=== PATIENT | female | born 1955 | race African-American/Black ===

== ENCOUNTER 2016-12-09 13:18 | Inpatient (IN) | payer BC, MEDICAID ==
[~2016-12-09] VITALS: Ht 167.6 cm; Wt 77.1 kg
[2016-12-09] MEDS ORDERED: Morphine Sulfate 4mg/ml Inj IVP ONE ×2 (13:45→15:45)
--- NOTE | 2016-12-09 14:09 | Diagnostic Imaging Report ---
Indication: COUGH Technique: One view of the chest Comparison: none Findings: There are large bilateral pleural effusions, left and right. There is bilateral interstitial edema. Heart is enlarged. Impression: Cardiomegaly. Bilateral interstitial edema and bilateral pleural effusions are consistent with congestive heart failure
[2016-12-09 14:11] LABS: BASOPHILS % (AUTO) 0.8 % (0.0-2.0); EOSINOPHILS % (AUTO) 0.1 % (0.0-3.0); LYMPHOCYTES % (AUTO) 6.5 % (20.0-45.0); MEAN CORPUSCULAR HEMOGLOBIN 27.5 PG (27.0-31.0); MEAN CORPUSCULAR HGB CONC 30.6 G/DL (32.0-36.0); MEAN CORPUSCULAR VOLUME 90 FL (80-99); MEAN PLATELET VOLUME 6.2 FL (6.5-10.1); MONOCYTES % (AUTO) 9.6 % (1.0-10.0); PLATELET COUNT 401 K/UL (150-450); RED BLOOD COUNT 4.76 M/UL (4.20-5.40); RED CELL DISTRIBUTION WIDTH 18.7 % (11.6-14.8); WHITE BLOOD COUNT 7.8 K/UL (4.8-10.8)
[2016-12-09 14:20] LABS: INR 1.1 (0.9-1.1)
--- NOTE | 2016-12-09 14:29 | Emergency Room Report ---
History of Present Illness General Chief Complaint: Abdominal Pain Source: Patient Present Illness HPI Patient presents emergency department today complaining of abdominal pain. Patient is a poor historian unable to provide much history. Patient only complains of abdominal discomfort last 3 days associate nausea but no vomiting. Symptoms noted to be severe. Patient denies any fever chest pain shortness breath.No other modifying factors. No other associated signs and symptoms. No other complaints were noted. Allergies: Coded Allergies: No Known Allergies (Unverified , 12/09/16) Patient History Past Medical History: DM, HTN Past Surgical History: none Pertinent Family History: none Social History: Denies: alcohol use, drug use, smoking Reviewed Nursing Documentation: PMH: Agreed, PSxH: Agreed Nursing Documentation-PMH Past Medical History: No History, Except For Hx Hypertension: Yes Hx Diabetes: Yes Review of Systems All Other Systems: negative except mentioned in HPI Physical Exam Vital Signs Date Time Temp Pulse Resp B/P Pulse Ox O2 Delivery O2 Flow Rate FiO2 12/09/16 13:21 98.6 100 18 117/79 99 Room Air Sp02 EP Interpretation: reviewed, normal General Appearance: alert, moderate distress Head: normocephalic, atraumatic Eyes: bilateral eye normal inspection ENT: normal ENT inspection, hearing grossly normal, normal voice Neck: normal inspection, full range of motion, supple, no bony tend Respiratory: normal inspection, lungs clear, normal breath sounds, no respiratory distress, no retraction, no wheezing Cardiovascular #1: regular rate, rhythm, no edema Gastrointestinal: normal inspection, normal bowel sounds, soft, no guarding, no hernia, tenderness - Diffusely, mass Genitourinary: no CVA tenderness Musculoskeletal: normal inspection, back normal, normal range of motion Neurologic: responsive, other - sleepy Psychiatric: normal inspection, judgement/insight normal, mood/affect normal Skin: normal inspection, normal color, no rash Medical Decision Making Diagnostic Impression: Primary Impression: Abdominal pain ER Course Patient presents emergency department today complaining of severe abdominal pain. Differential considerations include gastritis, bowel traction, hernia. There is a palpable mass. Given the severity of the patient's presentation I felt this is a highly complex patient. This patient required extensive workup. I will sign this case out to Dr. Arana for final disposition. Last Vital Signs Date Time Temp Pulse Resp B/P Pulse Ox O2 Delivery O2 Flow Rate FiO2 12/09/16 13:21 98.6 100 18 117/79 99 Room Air Referrals: NOT CHOSEN IPA/,REFERRING (PCP) PEDRO WHALEY M.D. Dec 09, 2016 14:29
[2016-12-09 14:30] LABS: ALANINE AMINOTRANSFERASE 22 U/L (3-33); ALBUMIN/GLOBULIN RATIO 0.7 (1.0-2.7); ANION GAP 22 (5-15); ASPARTATE AMINO TRANSFERASE 50 U/L (5-40); CALCIUM 8.8 mg/dL (8.6-10.2); CARBON DIOXIDE 26 mEQ/L (20-30); CHLORIDE 86 mEQ/L (98-107); CREATININE 0.6 mg/dL (0.5-0.9); GLOMERULAR FILTRATION RATE > 60 mL/min (>60); HEMOLYSIS 1; LIPASE 9 U/L (< 60); POTASSIUM 3.9 mEQ/L (3.4-4.9); SODIUM 134 mEQ/L (135-145); TROPONIN I < 0.30 ng/mL (<=0.30)
[2016-12-09 15:02] VITALS: BP 135/59
[2016-12-09 15:17] VITALS: BP 136/67
[2016-12-09] MEDS ORDERED: UNOBMED (16:06)
[2016-12-09 17:12] LABS: APPEARANCE,URINE CLEAR; KETONES,URINE 4+ (NEGATIVE); LEUKOCYTE ESTERASE ,URINE NEGATIVE (NEGATIVE); NITRITE,URINE NEGATIVE (NEGATIVE); PH,URINE 5 (4.5-8.0); PROTEIN,URINE 1+ (NEGATIVE); UROBILINOGEN,URINE NORMAL MG/DL (0.0-1.0)
[2016-12-09] MEDS ORDERED: Nitroglycerin Subl 0.4mg tab (Bottle Of 25) SL PRN (17:15)
[2016-12-09 17:26] LABS: RBC,URINE 0-2 /HPF (0 - 2); WBC,URINE 0-2 /HPF (0 - 2)
[2016-12-09 17:27] VITALS: BP 129/75
[2016-12-09 17:27] LABS: SQUAMOUS EPITHELIAL CELL,UR OCCASIONAL /LPF (NONE/OCC)
--- NOTE | 2016-12-09 17:49 | Emergency Room Report ---
History of Present Illness General Chief Complaint: Abdominal Pain Source: Patient Present Illness Allergies: Coded Allergies: No Known Allergies (Unverified , 12/09/16) Nursing Documentation-[facility] Past Medical History: No History, Except For Hx Hypertension: Yes Hx Diabetes: Yes Physical Exam Vital Signs Date Time Temp Pulse Resp B/P Pulse Ox O2 Delivery O2 Flow Rate FiO2 12/09/16 13:21 98.6 100 18 117/79 99 Room Air Medical Decision Making Diagnostic Impression: Primary Impression: Abdominal pain Qualified Codes: R10.84 - Generalized abdominal pain Additional Impression: Metastatic disease ER Course Hospital Course 61-year-old female presents ED complaining of abdominal distention and vomiting Clinical course Patient initially seen and evaluated by Dr. Busby; please see his note for full history and physical CT abdomen and pelvis - extensive metastasis and abdomen with ascites. No definitive bowel obstruction I discussed findings with patient. She is aware of having "cancer" in her abdomen but does not know where she is being treated. I suspect patient has lost to followup care Findings are significant, likely inoperable Case discussed with Dr. Schulte and he agreed to accept the patient to his service for further care and support I feel this is a highly complex case requiring extensive working including EKG/ Rhythm strip, Xray/CT/US, Blood/urine lab work, repeat exams while in ED, and administration of strong opiates/narcotics for pain control, admission to hospital or close patient follow up. Diagnosis -abd pain, metastatic disease Patient admitted to floor in serious condition Labs Test 12/09/16 13:50 12/09/16 16:42 White Blood Count 7.8 K/UL (4.8-10.8) Red Blood Count 4.76 M/UL (4.20-5.40) Hemoglobin 13.1 G/DL (12.0-16.0) Hematocrit 42.7 % (37.0-47.0) Mean Corpuscular Volume 90 FL (80-99) Mean Corpuscular Hemoglobin 27.5 PG (27.0-31.0) Mean Corpuscular Hemoglobin Concent 30.6 G/DL (32.0-36.0) Red Cell Distribution Width 18.7 % (11.6-14.8) Platelet Count 401 K/UL (150-450) Mean Platelet Volume 6.2 FL (6.5-10.1) Neutrophils (%) (Auto) 83.0 % (45.0-75.0) Lymphocytes (%) (Auto) 6.5 % (20.0-45.0) Monocytes (%) (Auto) 9.6 % (1.0-10.0) Eosinophils (%) (Auto) 0.1 % (0.0-3.0) Basophils (%) (Auto) 0.8 % (0.0-2.0) Prothrombin Time 11.0 SEC (9.30-11.50) Prothromb Time International Ratio 1.1 (0.9-1.1) Activated Partial Thromboplast Time 31 SEC (23-33) Sodium Level 134 mEQ/L (135-145) Potassium Level 3.9 mEQ/L (3.4-4.9) Chloride Level 86 mEQ/L (98-107) Carbon Dioxide Level 26 mEQ/L (20-30) Anion Gap 22 (5-15) Blood Urea Nitrogen 8 mg/dL (7-23) Creatinine 0.6 mg/dL (0.5-0.9) Estimat Glomerular Filtration Rate > 60 mL/min (>60) Glucose Level 81 mg/dL (74-106) Calcium Level 8.8 mg/dL (8.6-10.2) Total Bilirubin 0.4 mg/dL (0.0-1.2) Aspartate Amino Transf (AST/SGOT) 50 U/L (5-40) Alanine Aminotransferase (ALT/SGPT) 22 U/L (3-33) Alkaline Phosphatase 307 U/L (35-104) Troponin I < 0.30 ng/mL (<=0.30) Total Protein 7.0 g/dL (6.6-8.7) Albumin 2.9 g/dL (3.5-5.2) Globulin 4.1 g/dL Albumin/Globulin Ratio 0.7 (1.0-2.7) Lipase 9 U/L (< 60) Urine Color Yellow Urine Appearance Clear Urine pH 5 (4.5-8.0) Urine Specific [place] 1.015 (1.005-1.035) Urine Protein 1+ (NEGATIVE) Urine Glucose (UA) Negative (NEGATIVE) Urine Ketones 4+ (NEGATIVE) Urine Occult Blood 1+ (NEGATIVE) Urine Nitrite Negative (NEGATIVE) Urine Bilirubin Negative (NEGATIVE) Urine Urobilinogen Normal MG/DL (0.0-1.0) Urine Leukocyte Esterase Negative (NEGATIVE) Urine RBC 0-2 /HPF (0 - 2) Urine WBC 0-2 /HPF (0 - 2) Urine Squamous Epithelial Cells Occasional /LPF Urine Bacteria None /HPF (NONE) CT/MRI/US Diagnostic Results CT/MRI/US Diagnostic Results : Imaging Test Ordered: CT A/P Impression ascites, extensive metastasis in abdomen. no definitive SBO Last Vital Signs Date Time Temp Pulse Resp B/P Pulse Ox O2 Delivery O2 Flow Rate FiO2 12/09/16 17:30 98.5 109 21 129/75 100 Room Air Status: improved Disposition: ADMITTED INPATIENT Condition: Serious Referrals: NOT CHOSEN IPA/,REFERRING (PCP) ARCELIA CARLISLE M.D. Dec 09, 2016 17:49
[2016-12-09] MEDS ORDERED: Miralax 17gm pkt ORAL PRN (18:00)
[2016-12-09] MEDS ORDERED: Mylanta II UD 30ml ORAL PRN (18:00)
[2016-12-09 20:00] VITALS: BP 86/62
[2016-12-09] MEDS: NovoLOG Insulin Flexpen SUBQ SCH (21:00)
[2016-12-09] MEDS: Heparin 5000 units/ml inj SUBQ SCH (21:14)
[2016-12-09] MEDS: Morphine Sulfate 2mg/ml Inj IVP PRN (21:57)
[2016-12-10 00:45] VITALS: BP 135/79
[2016-12-10] MEDS: Morphine Sulfate 2mg/ml Inj IVP PRN ×3 (03:22→21:19)
[2016-12-10] MEDS: Ketorolac 30mg Inj IV PRN (03:55)
[2016-12-10 04:40] LABS: INR 1.1 (0.9-1.1); PROTHROMBIN TIME 10.9 SEC (9.30-11.50)
[2016-12-10 04:44] LABS: BASOPHILS % (AUTO) 1.6 % (0.0-2.0); EOSINOPHILS % (AUTO) 0.2 % (0.0-3.0); LYMPHOCYTES % (AUTO) 10.4 % (20.0-45.0); MEAN CORPUSCULAR HEMOGLOBIN 27.6 PG (27.0-31.0); MEAN CORPUSCULAR HGB CONC 30.5 G/DL (32.0-36.0); MEAN CORPUSCULAR VOLUME 91 FL (80-99); MEAN PLATELET VOLUME 6.6 FL (6.5-10.1); MONOCYTES % (AUTO) 11.5 % (1.0-10.0); NEUTROPHILS % (AUTO) 76.4 % (45.0-75.0); PLATELET COUNT 398 K/UL (150-450); RED BLOOD COUNT 4.65 M/UL (4.20-5.40); RED CELL DISTRIBUTION WIDTH 19.1 % (11.6-14.8); WHITE BLOOD COUNT 7.1 K/UL (4.8-10.8)
[2016-12-10 05:31] LABS: ALANINE AMINOTRANSFERASE 21 U/L (3-33); ALBUMIN/GLOBULIN RATIO 0.6 (1.0-2.7); AMYLASE 15 U/L (10-110); ANION GAP 21 (5-15); ASPARTATE AMINO TRANSFERASE 44 U/L (5-40); CALCIUM 8.9 mg/dL (8.6-10.2); CARBON DIOXIDE 27 mEQ/L (20-30); CHLORIDE 88 mEQ/L (98-107); CREATININE 0.6 mg/dL (0.5-0.9); GLOMERULAR FILTRATION RATE > 60 mL/min (>60); HEMOLYSIS 0; LIPASE 8 U/L (< 60); POTASSIUM 3.7 mEQ/L (3.4-4.9); SODIUM 136 mEQ/L (135-145); TOTAL PROTEIN 6.7 g/dL (6.6-8.7)
[2016-12-10] MEDS: NovoLOG Insulin Flexpen SUBQ SCH ×4 (06:20→22:10)
[2016-12-10 06:49] LABS: HEMOGLOBIN A1C 5.3 % (< 6.0)
[2016-12-10 08:00] VITALS: BP 129/76
[2016-12-10] MEDS: Heparin 5000 units/ml inj SUBQ SCH ×2 (09:10→22:15)
[2016-12-10 12:00] VITALS: BP 129/79
--- NOTE | 2016-12-10 13:17 | GI Initial Consult Note ---
History of Present Illness General Date patient seen: Dec 10, 2016 Time patient seen: 10:00 Reason for Hospitalization: Abdominal Pain Referring physician: SERENITY STATON Reason for Consultation: ABDOMINAL PAIN x 3 days Present Illness HPI Patient presents emergency department today complaining of abdominal pain. Patient is a poor historian unable to provide much history. Patient only complains of abdominal discomfort last 3 days associate nausea but no vomiting. Symptoms noted to be severe. Patient denies any fever chest pain shortness breath.No other modifying factors. No other associated signs and symptoms. No other complaints were noted. GI CONSULT: HPI as noted above, limited. Pt seen on floor fatigued, awakes upon touch. Unable to obtain full ROS. No active s/sx of abdominal pain or N/ V. APCT shows ascites, extensive metastasis in abdomen. No definitive SBO. Unknown history of any endoscopic procedures. Abdominal U/S pending. Patient presents today with abdominal pain, elevated alkaline phosphatase. Unremarkable lipase level. CT/MRI/US Diagnostic Results CT/MRI/US Diagnostic Results : Imaging Test Ordered: CT A/P Impression ascites, extensive metastasis in abdomen. no definitive SBO Home Meds Reported Medications Unable to Obtain Medications (UNABLE TO OBTAIN MEDS) 1 Ea Ea 12/09/16 Allergies: Coded Allergies: No Known Allergies (Unverified , 12/09/16) Patient History Limited by: medical condition History Provided By: Medical Record PM Narrative Past Medical History: DM, HTN Past Surgical History: none Pertinent Family History: none Social History: Denies: alcohol use, drug use, smoking Reviewed Nursing Documentation: PMH: Agreed, PSxH: Agreed Nursing Documentation-PMH Past Medical History: No History, Except For Hx Hypertension: Yes Hx Diabetes: Yes Review of Systems All Other Systems: limited Physical Exam Vital Signs Date Time Temp Pulse Resp B/P Pulse Ox O2 Delivery O2 Flow Rate FiO2 12/09/16 13:21 98.6 100 18 117/79 99 Room Air Sp02 EP Interpretation: reviewed Labs Laboratory Tests Test 12/09/16 13:50 12/09/16 16:42 12/10/16 03:45 White Blood Count 7.8 K/UL (4.8-10.8) 7.1 K/UL (4.8-10.8) Red Blood Count 4.76 M/UL (4.20-5.40) 4.65 M/UL (4.20-5.40) Hemoglobin 13.1 G/DL (12.0-16.0) 12.8 G/DL (12.0-16.0) Hematocrit 42.7 % (37.0-47.0) 42.1 % (37.0-47.0) Mean Corpuscular Volume 90 FL (80-99) 91 FL (80-99) Mean Corpuscular Hemoglobin 27.5 PG (27.0-31.0) 27.6 PG (27.0-31.0) Mean Corpuscular Hemoglobin Concent 30.6 G/DL (32.0-36.0) L 30.5 G/DL (32.0-36.0) L Red Cell Distribution Width 18.7 % (11.6-14.8) H 19.1 % (11.6-14.8) H Platelet Count 401 K/UL (150-450) 398 K/UL (150-450) Mean Platelet Volume 6.2 FL (6.5-10.1) L 6.6 FL (6.5-10.1) Neutrophils (%) (Auto) 83.0 % (45.0-75.0) H 76.4 % (45.0-75.0) H Lymphocytes (%) (Auto) 6.5 % (20.0-45.0) L 10.4 % (20.0-45.0) L Monocytes (%) (Auto) 9.6 % (1.0-10.0) 11.5 % (1.0-10.0) H Eosinophils (%) (Auto) 0.1 % (0.0-3.0) 0.2 % (0.0-3.0) Basophils (%) (Auto) 0.8 % (0.0-2.0) 1.6 % (0.0-2.0) Prothrombin Time 11.0 SEC (9.30-11.50) 10.9 SEC (9.30-11.50) Prothromb Time International Ratio 1.1 (0.9-1.1) 1.1 (0.9-1.1) Activated Partial Thromboplast Time 31 SEC (23-33) 32 SEC (23-33) Sodium Level 134 mEQ/L (135-145) L 136 mEQ/L (135-145) Potassium Level 3.9 mEQ/L (3.4-4.9) 3.7 mEQ/L (3.4-4.9) Chloride Level 86 mEQ/L (98-107) L 88 mEQ/L (98-107) L Carbon Dioxide Level 26 mEQ/L (20-30) 27 mEQ/L (20-30) Anion Gap 22 (5-15) H 21 (5-15) H Blood Urea Nitrogen 8 mg/dL (7-23) 7 mg/dL (7-23) Creatinine 0.6 mg/dL (0.5-0.9) 0.6 mg/dL (0.5-0.9) Estimat Glomerular Filtration Rate > 60 mL/min (>60) > 60 mL/min (>60) Glucose Level 81 mg/dL (74-106) 78 mg/dL (74-106) Calcium Level 8.8 mg/dL (8.6-10.2) 8.9 mg/dL (8.6-10.2) Total Bilirubin 0.4 mg/dL (0.0-1.2) 0.4 mg/dL (0.0-1.2) Aspartate Amino Transf (AST/SGOT) 50 U/L (5-40) H 44 U/L (5-40) H Alanine Aminotransferase (ALT/SGPT) 22 U/L (3-33) 21 U/L (3-33) Alkaline Phosphatase 307 U/L (35-104) H 328 U/L (35-104) H Troponin I < 0.30 ng/mL (<=0.30) Total Protein 7.0 g/dL (6.6-8.7) 6.7 g/dL (6.6-8.7) Albumin 2.9 g/dL (3.5-5.2) L 2.7 g/dL (3.5-5.2) L Globulin 4.1 g/dL 4.0 g/dL Albumin/Globulin Ratio 0.7 (1.0-2.7) L 0.6 (1.0-2.7) L Lipase 9 U/L (< 60) 8 U/L (< 60) Urine Color Yellow Urine Appearance Clear Urine pH 5 (4.5-8.0) Urine Specific [place] 1.015 (1.005-1.035) Urine Protein 1+ (NEGATIVE) H Urine Glucose (UA) Negative (NEGATIVE) Urine Ketones 4+ (NEGATIVE) H Urine Occult Blood 1+ (NEGATIVE) H Urine Nitrite Negative (NEGATIVE) Urine Bilirubin Negative (NEGATIVE) Urine Urobilinogen Normal MG/DL (0.0-1.0) Urine Leukocyte Esterase Negative (NEGATIVE) Urine RBC 0-2 /HPF (0 - 2) Urine WBC 0-2 /HPF (0 - 2) Urine Squamous Epithelial Cells Occasional /LPF Urine Bacteria None /HPF (NONE) Hemoglobin A1c 5.3 % (< 6.0) Amylase Level 15 U/L (10-110) Thyroid Stimulating Hormone (TSH) 0.830 uIU/mL (0.300-4.500) General Appearance: no apparent distress, other - fatigue Head: normocephalic EENT: normal ENT inspection Neck: supple Respiratory: no respiratory distress Cardiovascular: normal rate Gastrointestinal: non tender, soft, distended, ascites Rectal: deferred Current Medications Current Medications Medications (Trade) Dose Ordered Sig/Fabian Route PRN Reason Start Time Stop Time Status Last Admin Dose Admin Acetaminophen (Tylenol) 650 mg Q4H PRN ORAL T>100.5 12/09/16 17:15 01/08/17 17:14 Al Hydroxide/Mg Hydroxide (Mylanta II) 30 ml Q6H PRN ORAL dyspepsia 12/09/16 18:00 01/08/17 17:59 Dextrose (Dextrose 50%) STAT PRN IV Hypoglycemia 12/09/16 17:15 01/08/17 17:14 Diphenhydramine HCl (Benadryl) 25 mg Q6H PRN ORAL Itching/Pruritis 12/09/16 18:00 01/08/17 17:59 Heparin Sodium (Porcine) (Heparin 5000 units/ml) 5,000 units EVERY 12 HOURS SUBQ 12/09/16 21:00 01/08/17 20:59 12/10/16 09:10 Insulin Aspart (NovoLOG) BEFORE MEALS AND HS SUBQ 12/09/16 21:00 01/08/17 20:59 Ketorolac Tromethamine 30 mg 30 mg Q6H PRN IV Moderate Pain (Pain Scale 4-6) 12/09/16 17:15 12/14/16 17:14 12/10/16 03:55 Morphine Sulfate (Morphine Sulfate) 2 mg Q4H PRN IVP Severe Pain (Pain Scale 7-10) 12/09/16 17:15 12/16/16 17:14 12/10/16 11:19 Nitroglycerin (Ntg) 0.4 mg Q5M X 3 DOSES PRN SL Prn Chest Pain 12/09/16 17:15 01/08/17 17:14 Ondansetron HCl (Zofran) 4 mg Q6H PRN IVP Nausea & Vomiting 12/09/16 18:00 01/08/17 17:59 Polyethylene Glycol (Miralax) 17 gm HSPRN PRN ORAL Constipation 12/09/16 18:00 01/08/17 17:59 Sodium Chloride (Sodium Chloride 1000ml bag) 1,000 ml @ 50 mls/hr Q20H IV 12/09/16 18:00 01/08/17 17:59 12/09/16 18:06 Temazepam (Restoril) 15 mg HSPRN PRN ORAL Insomnia 12/09/16 21:00 12/16/16 20:59 12/10/16 00:50 GI: Plan Problems: (1) Elevated alkaline phosphatase level (2) Ascites (3) Metastatic disease (4) Abdominal pain Plan APCT >> ascites, extensive metastasis in abdomen. no definitive SBO symptomatic treatment fu abdominal U/S ordered paracentesis >> unable to obtain consent, AMS ordered aldactone + lasix ordered tumor markers, ammonia pain mgmt bowel regime ppi fu labs recommend oncology consult Discussed with Dr. Karimi. Thank you for referring this patient, we will follow. Love Witt N.P. Dec 10, 2016 13:17
--- NOTE | 2016-12-10 15:38 | History and Physical ---
History of Present Illness General Date patient seen: Dec 10, 2016 Reason for Hospitalization: Abdominal Pain Present Illness HPI 61 year old with hx of DM, and metastatic Cancer, presented to emergency department of [facility] [place] complaining of abdominal pain associate nausea but no vomiting. Pt is admitted for further treatment. Allergies: Coded Allergies: No Known Allergies (Unverified , 12/09/16) Medication History Miscellaneous Medications Unable to Obtain Medications (Unable To Obtain Meds), (Reported) Patient History Healthcare decision maker Resuscitation status Full Code Advanced Directive on File Past Medical/Surgical History Past Medical/Surgical History: (1) Metastatic disease (2) Abdominal pain (3) Ascites Review of Systems Gastrointestinal: Reports: abdominal pain All Other Systems: negative except mentioned in HPI Physical Exam General Appearance: cachetic Lines, tubes and drains: peripheral, central line HEENT: normocephalic Neck: non-tender, normal alignment Respiratory/Chest: chest wall non-tender, lungs clear Breasts: no masses Cardiovascular/Chest: normal peripheral pulses Abdomen: distended Last 24 Hour Vital Signs Date Time Temp Pulse Resp B/P Pulse Ox O2 Delivery O2 Flow Rate FiO2 12/10/16 12:00 97.9 108 18 129/79 96 Room Air 12/10/16 08:00 98.0 107 18 129/76 89 Room Air 12/10/16 00:45 97.7 120 19 135/79 91 Room Air 12/09/16 22:27 98.2 12/09/16 20:00 98.2 100 17 86/62 86 Room Air 12/09/16 17:30 98.5 109 21 129/75 100 Room Air 12/09/16 17:27 98.5 109 21 129/75 100 Room Air Intake and Output 12/09/16 12/10/16 18:59 06:59 Intake Total 150 ml Output Total 200 ml Balance -200 ml 150 ml Intake IV Total 150 ml Output Urine Total 200 ml # Voids 1 4 Laboratory Tests Test 12/09/16 16:42 12/10/16 03:45 Urine Color Yellow Urine Appearance Clear Urine pH 5 (4.5-8.0) Urine Specific [place] 1.015 (1.005-1.035) Urine Protein 1+ (NEGATIVE) H Urine Glucose (UA) Negative (NEGATIVE) Urine Ketones 4+ (NEGATIVE) H Urine Occult Blood 1+ (NEGATIVE) H Urine Nitrite Negative (NEGATIVE) Urine Bilirubin Negative (NEGATIVE) Urine Urobilinogen Normal MG/DL (0.0-1.0) Urine Leukocyte Esterase Negative (NEGATIVE) Urine RBC 0-2 /HPF (0 - 2) Urine WBC 0-2 /HPF (0 - 2) Urine Squamous Epithelial Cells Occasional /LPF Urine Bacteria None /HPF (NONE) White Blood Count 7.1 K/UL (4.8-10.8) Red Blood Count 4.65 M/UL (4.20-5.40) Hemoglobin 12.8 G/DL (12.0-16.0) Hematocrit 42.1 % (37.0-47.0) Mean Corpuscular Volume 91 FL (80-99) Mean Corpuscular Hemoglobin 27.6 PG (27.0-31.0) Mean Corpuscular Hemoglobin Concent 30.5 G/DL (32.0-36.0) L Red Cell Distribution Width 19.1 % (11.6-14.8) H Platelet Count 398 K/UL (150-450) Mean Platelet Volume 6.6 FL (6.5-10.1) Neutrophils (%) (Auto) 76.4 % (45.0-75.0) H Lymphocytes (%) (Auto) 10.4 % (20.0-45.0) L Monocytes (%) (Auto) 11.5 % (1.0-10.0) H Eosinophils (%) (Auto) 0.2 % (0.0-3.0) Basophils (%) (Auto) 1.6 % (0.0-2.0) Prothrombin Time 10.9 SEC (9.30-11.50) Prothromb Time International Ratio 1.1 (0.9-1.1) Activated Partial Thromboplast Time 32 SEC (23-33) Sodium Level 136 mEQ/L (135-145) Potassium Level 3.7 mEQ/L (3.4-4.9) Chloride Level 88 mEQ/L (98-107) L Carbon Dioxide Level 27 mEQ/L (20-30) Anion Gap 21 (5-15) H Blood Urea Nitrogen 7 mg/dL (7-23) Creatinine 0.6 mg/dL (0.5-0.9) Estimat Glomerular Filtration Rate > 60 mL/min (>60) Glucose Level 78 mg/dL (74-106) Hemoglobin A1c 5.3 % (< 6.0) Calcium Level 8.9 mg/dL (8.6-10.2) Total Bilirubin 0.4 mg/dL (0.0-1.2) Aspartate Amino Transf (AST/SGOT) 44 U/L (5-40) H Alanine Aminotransferase (ALT/SGPT) 21 U/L (3-33) Alkaline Phosphatase 328 U/L (35-104) H Total Protein 6.7 g/dL (6.6-8.7) Albumin 2.7 g/dL (3.5-5.2) L Globulin 4.0 g/dL Albumin/Globulin Ratio 0.6 (1.0-2.7) L Amylase Level 15 U/L (10-110) Lipase 8 U/L (< 60) Thyroid Stimulating Hormone (TSH) 0.830 uIU/mL (0.300-4.500) Height (Feet): 5 Height (Inches): 6.00 Weight (Pounds): 170 Medications Current Medications Medications (Trade) Dose Ordered Sig/Fabian Route PRN Reason Start Time Stop Time Status Last Admin Dose Admin Acetaminophen (Tylenol) 650 mg Q4H PRN ORAL T>100.5 12/09/16 17:15 01/08/17 17:14 Al Hydroxide/Mg Hydroxide (Mylanta II) 30 ml Q6H PRN ORAL dyspepsia 12/09/16 18:00 01/08/17 17:59 Dextrose (Dextrose 50%) STAT PRN IV Hypoglycemia 12/09/16 17:15 01/08/17 17:14 Diphenhydramine HCl (Benadryl) 25 mg Q6H PRN ORAL Itching/Pruritis 12/09/16 18:00 01/08/17 17:59 Docusate Sodium (Colace) 100 mg THREE TIMES A DAY ORAL 12/10/16 18:00 01/09/17 17:59 Furosemide (Lasix) 40 mg DAILY IV 12/11/16 09:00 01/10/17 08:59 Heparin Sodium (Porcine) (Heparin 5000 units/ml) 5,000 units EVERY 12 HOURS SUBQ 12/09/16 21:00 01/08/17 20:59 12/10/16 09:10 Insulin Aspart (NovoLOG) BEFORE MEALS AND HS SUBQ 12/09/16 21:00 01/08/17 20:59 Ketorolac Tromethamine 30 mg 30 mg Q6H PRN IV Moderate Pain (Pain Scale 4-6) 12/09/16 17:15 12/14/16 17:14 12/10/16 03:55 Morphine Sulfate (Morphine Sulfate) 2 mg Q4H PRN IVP Severe Pain (Pain Scale 7-10) 12/09/16 17:15 12/16/16 17:14 12/10/16 11:19 Nitroglycerin (Ntg) 0.4 mg Q5M X 3 DOSES PRN SL Prn Chest Pain 12/09/16 17:15 01/08/17 17:14 Ondansetron HCl (Zofran) 4 mg Q6H PRN IVP Nausea & Vomiting 12/09/16 18:00 01/08/17 17:59 Pantoprazole (Protonix) 40 mg DAILY IVP 12/11/16 09:00 01/10/17 08:59 Polyethylene Glycol (Miralax) 17 gm HSPRN PRN ORAL Constipation 12/09/16 18:00 01/08/17 17:59 Sodium Chloride (Sodium Chloride 1000ml bag) 1,000 ml @ 50 mls/hr Q20H IV 12/09/16 18:00 01/08/17 17:59 12/10/16 13:41 Spironolactone (Aldactone) 25 mg EVERY 12 HOURS ORAL 12/10/16 21:00 01/09/17 20:59 Temazepam (Restoril) 15 mg HSPRN PRN ORAL Insomnia 12/09/16 21:00 12/16/16 20:59 12/10/16 00:50 Assessment/Plan Problem List: (1) Metastatic disease ICD Codes: C80.1 - Malignant (primary) neoplasm, unspecified SNOMED: 142980300 (2) Abdominal pain ICD Codes: R10.9 - Unspecified abdominal pain SNOMED: 92816876 Qualifiers: Qualified Codes: R10.84 - Generalized abdominal pain (3) Ascites ICD Codes: R18.8 - Other ascites SNOMED: 559027008 (4) Elevated alkaline phosphatase level ICD Codes: R74.8 - Abnormal levels of other serum enzymes SNOMED: 302606966 Assessment/Plan symptomatic treatment NPO IV fluids pain management social service consult might need placement appropriate for hospice and end of life care. SERENITY LAU Dec 10, 2016 15:38
--- NOTE | 2016-12-10 15:53 | Diagnostic Imaging Report ---
Indication: Abdominal pain and nausea Technique: Conklin-scale and duplex images of the upper abdomen were obtained Comparison: 12/09/2016 CT abdomen pelvis Findings: . Liver demonstrates heterogeneous patchy abnormal echogenicity diffusely. It demonstrates multiple cysts. There are also multiple masses within the liver. The largest of these is a hyperechoic mass which measures 4.9 x 5.2 cm, probably some corresponding to the dominant mass described on recent CT scan. The gallbladder contains a large gallstone. It is otherwise more normal in appearance than would be expected based on prior CT.. Density of the gallbladder contents on the prior CT may therefore of limited milk of calcium bile or biliary contrast excretion. Portal vein and hepatic veins are patent., Bile duct measures 5 mm diameter. Is a small amount of ascites fluid present.. Pancreas is unremarkable. Spleen is unremarkable. Left kidney measures 11.1 cm in length. Right kidney measures 10.9 cm length. Both kidneys demonstrate normal echogenicity. There is no hydronephrosis. There is a small peripheral left renal cyst. There is a 16 mm right renal cyst, also described on recent CT . Abdominal aorta is partially obscured by bowel gas, visualized portions are non-aneurysmal. There is a large left pleural effusion Impression: Findings patchy abnormal hepatic echogenicity diffusely, likely reflecting chronic liver disease Multiple hepatic masses, also described on recent CT.. Suspect disseminated neoplasm Cholelithiasis. No definite gallbladder mass. Findings on recent CT in the gallbladder may just have reflect dense bile within the gallbladder lumen Mild intrahepatic biliary ductal dilatation, also described on recent CT Ascites Large left pleural effusion Incidental findings of bilateral renal cysts Note limited visualization of the distal abdominal aorta
[2016-12-10 16:00] VITALS: BP 136/79
[2016-12-10] MEDS: Docusate 100mg cap ORAL SCH (18:34)
[2016-12-10 20:00] VITALS: BP 145/70
[2016-12-10] MEDS: Spironolactone 25mg tab ORAL SCH (22:13)
[2016-12-11] VITALS: BP 126/78
[2016-12-11] MEDS: Ketorolac 30mg Inj IV PRN (00:44)
[2016-12-11 04:00] VITALS: BP 132/83
[2016-12-11] MEDS: NovoLOG Insulin Flexpen SUBQ SCH ×4 (06:10→21:28)
[2016-12-11 07:11] LABS: INR 1.1 (0.9-1.1); PROTHROMBIN TIME 10.7 SEC (9.30-11.50)
[2016-12-11 07:15] LABS: BASOPHILS % (AUTO) 1.8 % (0.0-2.0); EOSINOPHILS % (AUTO) 0.6 % (0.0-3.0); LYMPHOCYTES % (AUTO) 11.6 % (20.0-45.0); MEAN CORPUSCULAR HEMOGLOBIN 27.3 PG (27.0-31.0); MEAN CORPUSCULAR HGB CONC 30.2 G/DL (32.0-36.0); MEAN CORPUSCULAR VOLUME 91 FL (80-99); MEAN PLATELET VOLUME 6.6 FL (6.5-10.1); MONOCYTES % (AUTO) 12.9 % (1.0-10.0); NEUTROPHILS % (AUTO) 73.1 % (45.0-75.0); PLATELET COUNT 417 K/UL (150-450); RED BLOOD COUNT 4.55 M/UL (4.20-5.40); WHITE BLOOD COUNT 6.2 K/UL (4.8-10.8)
[2016-12-11 08:00] VITALS: BP 123/75
[2016-12-11 08:09] LABS: ALANINE AMINOTRANSFERASE 20 U/L (3-33); ALBUMIN/GLOBULIN RATIO 0.6 (1.0-2.7); ANION GAP 17 (5-15); ASPARTATE AMINO TRANSFERASE 41 U/L (5-40); CALCIUM 8.8 mg/dL (8.6-10.2); CARBON DIOXIDE 30 mEQ/L (20-30); CHLORIDE 90 mEQ/L (98-107); CREATININE 0.7 mg/dL (0.5-0.9); GLOMERULAR FILTRATION RATE > 60 mL/min (>60); HEMOLYSIS 3; POTASSIUM 3.8 mEQ/L (3.4-4.9); SODIUM 137 mEQ/L (135-145); TOTAL PROTEIN 6.5 g/dL (6.6-8.7)
[2016-12-11 08:42] LABS: AMMONIA 38 umol/L (11-51)
[2016-12-11] MEDS: Spironolactone 25mg tab ORAL SCH ×2 (09:00→21:23)
[2016-12-11] MEDS: Docusate 100mg cap ORAL SCH ×3 (09:00→17:00)
[2016-12-11] MEDS: Pantoprazole Inj IVP SCH (10:16)
[2016-12-11] MEDS: Heparin 5000 units/ml inj SUBQ SCH ×2 (10:18→21:27)
[2016-12-11] MEDS: Morphine Sulfate 2mg/ml Inj IVP PRN ×2 (10:32→17:00)
[2016-12-11 12:00] VITALS: BP 125/79
--- NOTE | 2016-12-11 12:41 | Diagnostic Imaging Report ---
APPROVED REPORT CPT Code: 63578 Present Symptoms Lower Extremity Pain: BILATERAL: Imaging reveals a patent deep venous system bilaterally. There is no evidence of thrombus within the femoral, popliteal or tibial segments. The greater saphenous veins are also within normal limits. Doppler indicates normal spontaneous flow within these segments.
[2016-12-11 16:00] VITALS: BP 121/79
[2016-12-11] MEDS ORDERED: NovoLOG Insulin Flexpen SUBQ SCH (16:30)
[2016-12-11 20:00] VITALS: BP 131/79
--- NOTE | 2016-12-11 20:23 | General Progress Note ---
Assessment/Plan Assessment/Plan Assessment (1) Elevated alkaline phosphatase level (2) Ascites (3) Metastatic disease (4) Abdominal pain Plan APCT >> ascites, extensive metastasis in abdomen. no definitive SBO symptomatic treatment fu abdominal U/S ordered paracentesis >> unable to obtain consent, AMS ordered aldactone + lasix ordered tumor markers, ammonia pain mgmt bowel regime ppi fu labs recommend oncology consult Subjective Allergies: Coded Allergies: No Known Allergies (Unverified , 12/09/16) Subjective arousable c/o abd pain Objective Last 24 Hour Vital Signs Date Time Temp Pulse Resp B/P Pulse Ox O2 Delivery O2 Flow Rate FiO2 12/11/16 12:00 98.1 18 125/79 95 Nasal Cannula 2.0 12/11/16 11:02 97.2 12/11/16 08:00 98.9 20 123/75 98 Nasal Cannula 2.0 12/11/16 04:00 97.2 94 19 132/83 97 Room Air 12/11/16 00:00 98.2 123 19 126/78 87 Nasal Cannula Intake and Output 12/10/16 12/11/16 19:00 07:00 Intake Total 350 ml 350 ml Output Total 0 ml Balance 350 ml 350 ml Intake IV Total 350 ml 350 ml Output Urine Total 0 ml Laboratory Tests 12/11/16 05:15: White Blood Count 6.2, Red Blood Count 4.55, Hemoglobin 12.4, Hematocrit 41.3, Mean Corpuscular Volume 91, Mean Corpuscular Hemoglobin 27.3, Mean Corpuscular Hemoglobin Concent 30.2L, Red Cell Distribution Width 19.0H, Platelet Count 417 , Mean Platelet Volume 6.6, Neutrophils (%) (Auto) 73.1, Lymphocytes (%) (Auto) 11.6L, Monocytes (%) (Auto) 12.9H, Eosinophils (%) (Auto) 0.6, Basophils (%) ( Auto) 1.8, Prothrombin Time 10.7, Prothromb Time International Ratio 1.1, Activated Partial Thromboplast Time 32, Sodium Level 137, Potassium Level 3.8, Chloride Level 90L, Carbon Dioxide Level 30, Anion Gap 17H, Blood Urea Nitrogen 8, Creatinine 0.7, Estimat Glomerular Filtration Rate > 60, Glucose Level 96, Calcium Level 8.8, Total Bilirubin 0.4, Aspartate Amino Transf (AST/SGOT) 41H, Alanine Aminotransferase (ALT/SGPT) 20, Alkaline Phosphatase 327H, Ammonia 38, Total Protein 6.5L, Albumin 2.6L, Globulin 3.9, Albumin/Globulin Ratio 0.6L, Alpha Fetoprotein [Pending], Carcinoembryonic Antigen 3.3H, CA 19-9 Antigen 153.5H Height (Feet): 5 Height (Inches): 6.00 Weight (Pounds): 170 Objective Elderly AAA woman NCAT supple CTA RRR Soft no edema MICHAEL ACEVEDO Dec 11, 2016 20:23
[2016-12-12] VITALS (7 sets, daily range): BP systolic 109–133; BP diastolic 74–93
[2016-12-12] MEDS: Morphine Sulfate 2mg/ml Inj IVP PRN ×3 (01:28→17:50)
[2016-12-12] MEDS: Ketorolac 30mg Inj IV PRN (04:36)
[2016-12-12] MEDS: NovoLOG Insulin Flexpen SUBQ SCH ×4 (06:51→21:47)
[2016-12-12] MEDS: Docusate 100mg cap ORAL SCH ×3 (10:42→17:50)
[2016-12-12] MEDS: Spironolactone 25mg tab ORAL SCH ×2 (10:42→21:43)
[2016-12-12] MEDS: Pantoprazole Inj IVP SCH (10:43)
[2016-12-12] MEDS: Heparin 5000 units/ml inj SUBQ SCH ×2 (11:17→21:44)
--- NOTE | 2016-12-12 13:49 | Pulmonology Progress Note ---
Assessment/Plan Problems: (1) Metastatic disease (2) Abdominal pain (3) Ascites (4) Elevated alkaline phosphatase level Assessment/Plan thoracentesis in am increase methadone social service evaluation Subjective ROS Limited/Unobtainable: No Allergies: Coded Allergies: No Known Allergies (Unverified , 12/09/16) Objective Last 24 Hour Vital Signs Date Time Temp Pulse Resp B/P Pulse Ox O2 Delivery O2 Flow Rate FiO2 12/12/16 11:58 97.5 75 20 130/75 100 Room Air 12/12/16 08:00 97.4 98 19 109/79 95 Room Air 12/12/16 07:12 97.4 12/12/16 05:06 97.7 12/12/16 04:00 97.7 111 20 125/84 92 Room Air 12/12/16 00:00 97.7 120 21 133/93 97 Room Air 12/11/16 20:00 98.1 18 131/79 95 Nasal Cannula 2.0 12/11/16 16:00 97.9 18 121/79 96 Nasal Cannula 2.0 Intake and Output 12/11/16 12/12/16 19:00 07:00 # Voids 1 4 General Appearance: cachetic Respiratory/Chest: chest wall non-tender, lungs clear Cardiovascular: normal peripheral pulses, normal rate Abdomen: normal bowel sounds, soft, non tender Extremities: no clubbing Skin: no rash Current Medications Medications (Trade) Dose Ordered Sig/Fabian Route PRN Reason Start Time Stop Time Status Last Admin Dose Admin Acetaminophen (Tylenol) 650 mg Q4H PRN ORAL T>100.5 12/09/16 17:15 01/08/17 17:14 Al Hydroxide/Mg Hydroxide (Mylanta II) 30 ml Q6H PRN ORAL dyspepsia 12/09/16 18:00 01/08/17 17:59 Dextrose (Dextrose 50%) STAT PRN IV Hypoglycemia 12/09/16 17:15 01/08/17 17:14 Diphenhydramine HCl (Benadryl) 25 mg Q6H PRN ORAL Itching/Pruritis 12/09/16 18:00 01/08/17 17:59 Docusate Sodium (Colace) 100 mg THREE TIMES A DAY ORAL 12/10/16 18:00 01/09/17 17:59 12/12/16 12:15 Furosemide (Lasix) 40 mg DAILY IV 12/11/16 09:00 01/10/17 08:59 12/12/16 10:43 Heparin Sodium (Porcine) (Heparin 5000 units/ml) 5,000 units EVERY 12 HOURS SUBQ 12/09/16 21:00 01/08/17 20:59 12/12/16 11:17 Insulin Aspart (NovoLOG) BEFORE MEALS AND HS SUBQ 12/09/16 21:00 01/08/17 20:59 12/12/16 12:10 Ketorolac Tromethamine 30 mg 30 mg Q6H PRN IV Moderate Pain (Pain Scale 4-6) 12/09/16 17:15 12/14/16 17:14 12/12/16 04:36 Methadone HCl (Methadone HCl) 10 mg EVERY 8 HOURS ORAL 12/12/16 14:00 12/19/16 13:59 UNV Morphine Sulfate (Morphine Sulfate) 2 mg Q4H PRN IVP Severe Pain (Pain Scale 7-10) 12/09/16 17:15 12/16/16 17:14 12/12/16 06:42 Nitroglycerin (Ntg) 0.4 mg Q5M X 3 DOSES PRN SL Prn Chest Pain 12/09/16 17:15 01/08/17 17:14 Ondansetron HCl (Zofran) 4 mg Q6H PRN IVP Nausea & Vomiting 12/09/16 18:00 01/08/17 17:59 12/10/16 18:35 Pantoprazole (Protonix) 40 mg DAILY IVP 12/11/16 09:00 01/10/17 08:59 12/12/16 10:43 Polyethylene Glycol (Miralax) 17 gm HSPRN PRN ORAL Constipation 12/09/16 18:00 01/08/17 17:59 Sodium Chloride (Sodium Chloride 1000ml bag) 1,000 ml @ 50 mls/hr Q20H IV 12/09/16 18:00 01/08/17 17:59 12/12/16 06:31 Spironolactone (Aldactone) 25 mg EVERY 12 HOURS ORAL 12/10/16 21:00 01/09/17 20:59 12/12/16 10:42 Temazepam (Restoril) 15 mg HSPRN PRN ORAL Insomnia 12/09/16 21:00 12/16/16 20:59 12/10/16 00:50 SERENITY LAU Dec 12, 2016 13:49
--- NOTE | 2016-12-12 15:47 | General Progress Note ---
Assessment/Plan Assessment/Plan Assessment (1) Elevated alkaline phosphatase level (2) Ascites (3) Metastatic disease (4) Abdominal pain Plan APCT >> ascites, extensive metastasis in abdomen. no definitive SBO symptomatic treatment fu abdominal U/S ordered paracentesis >> unable to obtain consent, AMS ordered aldactone + lasix ordered tumor markers, ammonia pain mgmt bowel regime ppi fu labs recommend oncology consult Subjective Allergies: Coded Allergies: No Known Allergies (Unverified , 12/09/16) Subjective arousable c/o abd pain tolerating PO Objective Last 24 Hour Vital Signs Date Time Temp Pulse Resp B/P Pulse Ox O2 Delivery O2 Flow Rate FiO2 12/12/16 11:58 97.5 75 20 130/75 100 Room Air 12/12/16 08:00 97.4 98 19 109/79 95 Room Air 12/12/16 07:12 97.4 12/12/16 05:06 97.7 12/12/16 04:00 97.7 111 20 125/84 92 Room Air 12/12/16 00:00 97.7 120 21 133/93 97 Room Air 12/11/16 20:00 98.1 18 131/79 95 Nasal Cannula 2.0 12/11/16 16:00 97.9 18 121/79 96 Nasal Cannula 2.0 Intake and Output 12/11/16 12/12/16 19:00 07:00 # Voids 1 4 Height (Feet): 5 Height (Inches): 6.00 Weight (Pounds): 170 Objective Elderly AAA woman NCAT supple CTA RRR Soft no edema MICHAEL ACEVEDO Dec 12, 2016 15:47
[2016-12-13] VITALS: BP 125/85
[2016-12-13] MEDS: Morphine Sulfate 2mg/ml Inj IVP PRN ×2 (00:48→16:13)
[2016-12-13 04:00] VITALS: BP 108/60
[2016-12-13] MEDS: Ketorolac 30mg Inj IV PRN ×2 (04:30→23:51)
[2016-12-13] MEDS: NovoLOG Insulin Flexpen SUBQ SCH ×4 (06:30→20:39)
[2016-12-13 08:00] VITALS: BP 135/93
[2016-12-13] MEDS: Docusate 100mg cap ORAL SCH ×3 (08:35→17:40)
[2016-12-13] MEDS: Spironolactone 25mg tab ORAL SCH ×2 (08:35→20:34)
[2016-12-13] MEDS: Heparin 5000 units/ml inj SUBQ SCH ×2 (08:36→20:38)
[2016-12-13 12:00] VITALS: BP 128/97
--- NOTE | 2016-12-13 13:53 | GI Progress Note ---
Assessment/Plan Problems: (1) Liver mass ICD Codes: R16.0 - Hepatomegaly, not elsewhere classified SNOMED: 303057119 (2) Metastatic disease ICD Codes: C80.1 - Malignant (primary) neoplasm, unspecified SNOMED: 975561056 (3) Abdominal pain ICD Codes: R10.9 - Unspecified abdominal pain SNOMED: 40612858 Qualifiers: Qualified Codes: R10.84 - Generalized abdominal pain (4) Ascites ICD Codes: R18.8 - Other ascites SNOMED: 539569666 (5) Elevated alkaline phosphatase level ICD Codes: R74.8 - Abnormal levels of other serum enzymes SNOMED: 238186200 Status: unchanged Status Narrative Discussed with Dr. Karimi. Assessment/Plan APCT >> ascites, extensive metastasis in abdomen. no definitive SBO fu abdominal U/S >> Multiple hepatic masses, also described on recent CT.. Suspect disseminated neoplasm elevated 19-9 >> 153.5 symptomatic treatment recommend paracentesis >> patient unsure and refuses at this time. cont lasix fu AFP bowel regime ppi fu labs recommend oncology consult recommend Pain Mgmt consult recommend EGD/colonoscopy, however patient states she has had one done but cannot recall time or location. Subjective Gastrointestinal/Abdominal: Reports: nausea Subjective nausea denies vomiting c/o of generalized abdominal pain 08/09 Objective Last 24 Hour Vital Signs Date Time Temp Pulse Resp B/P Pulse Ox O2 Delivery O2 Flow Rate FiO2 12/13/16 08:00 98.2 108 19 135/93 93 Room Air 12/13/16 05:00 99.2 12/13/16 04:00 97.9 109 18 108/60 95 Room Air 12/13/16 01:18 99.2 12/13/16 00:00 96.1 111 18 125/85 93 Room Air 12/12/16 21:51 99.2 109 18 118/82 95 Room Air 12/12/16 20:00 97.5 109 18 118/82 95 Room Air 12/12/16 16:00 97.5 109 18 125/74 97 Room Air Intake and Output 12/12/16 12/13/16 19:00 07:00 Intake Total 1120 ml 1095 ml Balance 1120 ml 1095 ml Intake Oral 720 ml 620 ml IV Total 400 ml 475 ml # Voids 2 4 Height (Feet): 5 Height (Inches): 6.00 Weight (Pounds): 170 General Appearance: no apparent distress, alert Cardiovascular: normal rate Respiratory/Chest: normal breath sounds, no respiratory distress Abdominal Exam: normal bowel sounds, soft, tender - generalized Objective Procedure: US ABD Complete Indication: Abdominal pain and nausea Technique: Conklin-scale and duplex images of the upper abdomen were obtained Comparison: 12/09/2016 CT abdomen pelvis Impression: Findings patchy abnormal hepatic echogenicity diffusely, likely reflecting chronic liver disease Multiple hepatic masses, also described on recent CT.. Suspect disseminated neoplasm Cholelithiasis. No definite gallbladder mass. Findings on recent CT in the gallbladder may just have reflect dense bile within the gallbladder lumen Mild intrahepatic biliary ductal dilatation, also described on recent CT Ascites Large left pleural effusion Incidental findings of bilateral renal cysts Note limited visualization of the distal abdominal aorta Lvoe Witt N.P. Dec 13, 2016 13:53
[2016-12-13] MEDS ORDERED: Tubing IV Secondary IV ONE (14:18)
--- NOTE | 2016-12-13 15:33 | Pulmonology Progress Note ---
Assessment/Plan Problems: (1) Metastatic disease (2) Abdominal pain (3) Ascites (4) Elevated alkaline phosphatase level Assessment/Plan thoracentesis in am on methadone Pt will need placement social service evaluation Subjective Interval Events: thoracentesis in am, the pain is better controlled Allergies: Coded Allergies: No Known Allergies (Unverified , 12/09/16) Objective Last 24 Hour Vital Signs Date Time Temp Pulse Resp B/P Pulse Ox O2 Delivery O2 Flow Rate FiO2 12/13/16 12:00 97.2 105 20 128/97 93 Room Air 12/13/16 08:00 98.2 108 19 135/93 93 Room Air 12/13/16 05:00 99.2 12/13/16 04:00 97.9 109 18 108/60 95 Room Air 12/13/16 01:18 99.2 12/13/16 00:00 96.1 111 18 125/85 93 Room Air 12/12/16 21:51 99.2 109 18 118/82 95 Room Air 12/12/16 20:00 97.5 109 18 118/82 95 Room Air 12/12/16 16:00 97.5 109 18 125/74 97 Room Air Intake and Output 12/12/16 12/13/16 19:00 07:00 Intake Total 1120 ml 1095 ml Balance 1120 ml 1095 ml Intake Oral 720 ml 620 ml IV Total 400 ml 475 ml # Voids 2 4 Objective General Appearance: cachetic Respiratory/Chest: chest wall non-tender, lungs clear Cardiovascular: normal peripheral pulses, normal rate Abdomen: normal bowel sounds, soft, non tender Extremities: no clubbing Skin: no rash Current Medications Medications (Trade) Dose Ordered Sig/Fabian Route PRN Reason Start Time Stop Time Status Last Admin Dose Admin Acetaminophen (Tylenol) 650 mg Q4H PRN ORAL T>100.5 12/09/16 17:15 01/08/17 17:14 Al Hydroxide/Mg Hydroxide (Mylanta II) 30 ml Q6H PRN ORAL dyspepsia 12/09/16 18:00 01/08/17 17:59 Dextrose (Dextrose 50%) STAT PRN IV Hypoglycemia 12/09/16 17:15 01/08/17 17:14 Diphenhydramine HCl (Benadryl) 25 mg Q6H PRN ORAL Itching/Pruritis 12/09/16 18:00 01/08/17 17:59 Docusate Sodium (Colace) 100 mg THREE TIMES A DAY ORAL 12/10/16 18:00 01/09/17 17:59 12/13/16 14:02 Furosemide (Lasix) 40 mg DAILY IV 12/11/16 09:00 01/10/17 08:59 12/13/16 08:36 Heparin Sodium (Porcine) (Heparin 5000 units/ml) 5,000 units EVERY 12 HOURS SUBQ 12/09/16 21:00 01/08/17 20:59 12/13/16 08:36 Insulin Aspart (NovoLOG) BEFORE MEALS AND HS SUBQ 12/09/16 21:00 01/08/17 20:59 12/13/16 11:32 Ketorolac Tromethamine 30 mg 30 mg Q6H PRN IV Moderate Pain (Pain Scale 4-6) 12/09/16 17:15 12/14/16 17:14 12/13/16 04:30 Methadone HCl (Methadone HCl) 10 mg EVERY 8 HOURS ORAL 12/12/16 22:00 12/19/16 21:59 12/13/16 14:03 Morphine Sulfate (Morphine Sulfate) 2 mg Q4H PRN IVP Severe Pain (Pain Scale 7-10) 12/09/16 17:15 12/16/16 17:14 12/13/16 00:48 Nitroglycerin (Ntg) 0.4 mg Q5M X 3 DOSES PRN SL Prn Chest Pain 12/09/16 17:15 01/08/17 17:14 Ondansetron HCl (Zofran) 4 mg Q6H PRN IVP Nausea & Vomiting 12/09/16 18:00 01/08/17 17:59 12/10/16 18:35 Pantoprazole (Protonix) 40 mg DAILY ORAL 12/13/16 09:00 01/12/17 08:59 12/13/16 08:35 Polyethylene Glycol (Miralax) 17 gm HSPRN PRN ORAL Constipation 12/09/16 18:00 01/08/17 17:59 Sodium Chloride (Sodium Chloride 1000ml bag) 1,000 ml @ 50 mls/hr Q20H IV 12/09/16 18:00 01/08/17 17:59 12/13/16 04:29 Spironolactone (Aldactone) 25 mg EVERY 12 HOURS ORAL 12/10/16 21:00 01/09/17 20:59 12/13/16 08:35 Temazepam (Restoril) 15 mg HSPRN PRN ORAL Insomnia 12/09/16 21:00 12/16/16 20:59 12/10/16 00:50 SERENITY LAU Dec 13, 2016 15:33
[2016-12-13 16:00] VITALS: BP 127/85
[2016-12-13 20:27] VITALS: BP 108/76
[2016-12-14] VITALS: BP 122/92
[2016-12-14 04:00] VITALS: BP 117/88
[2016-12-14] MEDS: NovoLOG Insulin Flexpen SUBQ SCH ×4 (05:44→21:18)
[2016-12-14] MEDS: Morphine Sulfate 2mg/ml Inj IVP PRN ×2 (05:47→17:27)
[2016-12-14 07:01] LABS: BASOPHILS % (AUTO) 1.4 % (0.0-2.0); EOSINOPHILS % (AUTO) 2.6 % (0.0-3.0); LYMPHOCYTES % (AUTO) 20.7 % (20.0-45.0); MEAN CORPUSCULAR HEMOGLOBIN 28.2 PG (27.0-31.0); MEAN CORPUSCULAR HGB CONC 30.4 G/DL (32.0-36.0); MEAN CORPUSCULAR VOLUME 93 FL (80-99); MONOCYTES % (AUTO) 11.1 % (1.0-10.0); NEUTROPHILS % (AUTO) 64.2 % (45.0-75.0); PLATELET COUNT 424 K/UL (150-450); RED BLOOD COUNT 4.29 M/UL (4.20-5.40); RED CELL DISTRIBUTION WIDTH 18.2 % (11.6-14.8); WHITE BLOOD COUNT 6.3 K/UL (4.8-10.8)
[2016-12-14 07:10] LABS: ANION GAP 13 (5-15); CALCIUM 9.4 mg/dL (8.6-10.2); CARBON DIOXIDE 30 mEQ/L (20-30); CHLORIDE 93 mEQ/L (98-107); CREATININE 0.7 mg/dL (0.5-0.9); GLOMERULAR FILTRATION RATE > 60 mL/min (>60); HEMOLYSIS 1; MAGNESIUM 1.5 mg/dL (1.7-2.5); PHOSPHORUS 3.6 mg/dL (2.5-4.8); POTASSIUM 4.1 mEQ/L (3.4-4.9); SODIUM 136 mEQ/L (135-145)
[2016-12-14] MEDS: Spironolactone 25mg tab ORAL SCH ×2 (08:47→21:16)
[2016-12-14] MEDS: Docusate 100mg cap ORAL SCH ×3 (08:47→17:26)
[2016-12-14 08:48] VITALS: BP 123/80
[2016-12-14] MEDS: Heparin 5000 units/ml inj SUBQ SCH ×2 (08:48→21:18)
--- NOTE | 2016-12-14 09:55 | GI Progress Note ---
Assessment/Plan Problems: (1) Liver mass ICD Codes: R16.0 - Hepatomegaly, not elsewhere classified SNOMED: 729263223 (2) Metastatic disease ICD Codes: C80.1 - Malignant (primary) neoplasm, unspecified SNOMED: 586546428 (3) Abdominal pain ICD Codes: R10.9 - Unspecified abdominal pain SNOMED: 05207197 Qualifiers: Qualified Codes: R10.84 - Generalized abdominal pain (4) Ascites ICD Codes: R18.8 - Other ascites SNOMED: 403781216 (5) Elevated alkaline phosphatase level ICD Codes: R74.8 - Abnormal levels of other serum enzymes SNOMED: 363802174 Status: unchanged Status Narrative Discussed with Dr. Karimi. Assessment/Plan per patient >> she has Uterine CA stage IV and is being seen at [facility] APCT >> ascites, extensive metastasis in abdomen. no definitive SBO fu abdominal U/S >> Multiple hepatic masses, also described on recent CT.. Suspect disseminated neoplasm elevated 19-9 >> 153.5 symptomatic treatment recommend paracentesis >> patient unsure and refuses at this time. cont lasix fu AFP bowel regime ppi fu labs recommend oncology consult recommend Pain Mgmt consult Subjective Subjective nausea denies vomiting c/o of generalized abdominal pain 10/10 Objective Last 24 Hour Vital Signs Date Time Temp Pulse Resp B/P Pulse Ox O2 Delivery O2 Flow Rate FiO2 12/14/16 08:48 97.7 112 18 123/80 92 Room Air 12/14/16 04:00 97.3 109 19 117/88 94 Room Air 12/14/16 00:00 97.5 114 18 122/92 92 Room Air 12/13/16 20:27 97.5 108 17 108/76 93 Room Air 12/13/16 16:43 97.2 12/13/16 16:00 97.3 108 20 127/85 95 Room Air 12/13/16 12:00 97.2 105 20 128/97 93 Room Air Intake and Output 12/13/16 12/14/16 19:00 07:00 Intake Total 1470 ml 660 ml Balance 1470 ml 660 ml Intake Oral 870 ml 360 ml IV Total 600 ml 300 ml # Voids 4 4 Laboratory Tests Test 12/14/16 05:15 White Blood Count 6.3 K/UL (4.8-10.8) Red Blood Count 4.29 M/UL (4.20-5.40) Hemoglobin 12.1 G/DL (12.0-16.0) Hematocrit 39.8 % (37.0-47.0) Mean Corpuscular Volume 93 FL (80-99) Mean Corpuscular Hemoglobin 28.2 PG (27.0-31.0) Mean Corpuscular Hemoglobin Concent 30.4 G/DL (32.0-36.0) L Red Cell Distribution Width 18.2 % (11.6-14.8) H Platelet Count 424 K/UL (150-450) Mean Platelet Volume 7.0 FL (6.5-10.1) Neutrophils (%) (Auto) 64.2 % (45.0-75.0) Lymphocytes (%) (Auto) 20.7 % (20.0-45.0) Monocytes (%) (Auto) 11.1 % (1.0-10.0) H Eosinophils (%) (Auto) 2.6 % (0.0-3.0) Basophils (%) (Auto) 1.4 % (0.0-2.0) Sodium Level 136 mEQ/L (135-145) Potassium Level 4.1 mEQ/L (3.4-4.9) Chloride Level 93 mEQ/L (98-107) L Carbon Dioxide Level 30 mEQ/L (20-30) Anion Gap 13 (5-15) Blood Urea Nitrogen 16 mg/dL (7-23) Creatinine 0.7 mg/dL (0.5-0.9) Estimat Glomerular Filtration Rate > 60 mL/min (>60) Glucose Level 107 mg/dL (74-106) H Calcium Level 9.4 mg/dL (8.6-10.2) Phosphorus Level 3.6 mg/dL (2.5-4.8) Magnesium Level 1.5 mg/dL (1.7-2.5) L Height (Feet): 5 Height (Inches): 6.00 Weight (Pounds): 170 General Appearance: no apparent distress, alert Cardiovascular: normal rate Respiratory/Chest: normal breath sounds, no respiratory distress Abdominal Exam: normal bowel sounds, soft, tender Objective Procedure: US ABD Complete Indication: Abdominal pain and nausea Technique: Conlkin-scale and duplex images of the upper abdomen were obtained Comparison: 12/09/2016 CT abdomen pelvis Impression: Findings patchy abnormal hepatic echogenicity diffusely, likely reflecting chronic liver disease Multiple hepatic masses, also described on recent CT.. Suspect disseminated neoplasm Cholelithiasis. No definite gallbladder mass. Findings on recent CT in the gallbladder may just have reflect dense bile within the gallbladder lumen Mild intrahepatic biliary ductal dilatation, also described on recent CT Ascites Large left pleural effusion Incidental findings of bilateral renal cysts Note limited visualization of the distal abdominal aorta Love Witt N.P. Dec 14, 2016 09:55
[2016-12-14] MEDS ORDERED: ATORVASTATIN CA20 MG ORAL (10:22)
[2016-12-14] MEDS ORDERED: VITAMIN D1000 UNI1 ORAL (10:23)
[2016-12-14] MEDS ORDERED: HYDROCHLOROTHIA25 MG ORAL (10:24)
[2016-12-14] MEDS ORDERED: DOCUSATE SODIU100 MG ORAL (10:24)
[2016-12-14] MEDS ORDERED: LISINOPRIL20 MG ORAL (10:25)
[2016-12-14] MEDS ORDERED: MOM30 ML ORAL (10:29)
[2016-12-14] MEDS ORDERED: MAGNESIUM400 M1 PO (10:30)
[2016-12-14] MEDS ORDERED: NAMENDA5 MG ORAL (10:36)
[2016-12-14] MEDS ORDERED: METOPROLOL TART25 MG ORAL (10:43)
[2016-12-14] MEDS ORDERED: MULTIVITAMINS1 EAC2 ORAL (10:44)
[2016-12-14] MEDS ORDERED: REMERON45 M1 ORAL (10:44)
[2016-12-14] MEDS ORDERED: OMEPRAZOLE20 M2 ORAL (10:48)
[2016-12-14] MEDS ORDERED: SEROQUEL50 MG ORAL (10:49)
[2016-12-14] MEDS ORDERED: TYLENOL EXTRA500 MG ORAL (10:51)
[2016-12-14 12:02] VITALS: BP 117/80
--- NOTE | 2016-12-14 13:35 | Diagnostic Imaging Report ---
Indications: Abdominal pain and distention, ascites Technique: Procedure, indications, risks and alternatives were explained to the patient who understands and gives consent to proceed. The abdomen and pelvis were surveyed sonographically. The skin over the right lower quadrant was sterilely prepped and draped in usual fashion. Skin and subcutaneous soft tissues were infiltrated with 1% lidocaine and sodium bicarbonate. A small dermatotomy was made, through which an 8 Wolof paracentesis catheter was advanced under direct sonographic guidance into the peritoneal cavity. Ascites was maximally drained into vacuum bottles. Followup imaging was performed. Catheter was removed. Dermatotomy site was manually compressed to achieve stasis, then cleansed and bandaged. Patient tolerated the procedure well without immediate complications. A portion of aspirated fluid is saved in a sterile container for ordered laboratory tests. Findings: Initial imaging demonstrates a or amount of ascites throughout the abdomen and pelvis. Post procedure imaging demonstrates decrease in volume of ascites. Paracentesis yields approximately 1800 cc of jayde, slightly turbid fluid. IMPRESSION: Ultrasound-guided paracentesis yielding 0.8 L of ascites, laboratory analysis pending.
--- NOTE | 2016-12-14 13:40 | Diagnostic Imaging Report ---
Indications: Bilateral pleural effusions, left greater than right Technique: Procedure, indications, risks and alternatives were explained to the patient who understands and gives consent to proceed. The left pleural space was surveyed sonographically. The skin over the posterior aspect of the left hemithorax was sterilely prepped and draped in usual fashion. Skin and subcutaneous soft tissues were infiltrated with 1% lidocaine and sodium bicarbonate. A small dermatotomy was made, through which an 8 Polish thoracentesis catheter was advanced under direct sonographic guidance into the left pleural space. Pleural fluid was maximally drained via vacuum apparatus.. Followup imaging was performed. Catheter was removed. Dermatotomy site was manually compressed to achieve stasis, then cleansed and bandaged. Patient tolerated the procedure well without immediate complications. Fluid was sent to laboratory and pathology for analysis, as ordered. Findings: Initial imaging demonstrates a moderate amount of fluid within the left pleural space. Post procedure imaging demonstrates virtual resolution of fluid. Thoracentesis yields proximally 500 cc of red-jayde slightly turbid fluid. IMPRESSION: Ultrasound-guided left thoracentesis yielding 500 cc of of mildly sanguinous pleural fluid , laboratory and pathology results pending. Followup chest radiograph pending.
--- NOTE | 2016-12-14 13:42 | Diagnostic Imaging Report ---
Indications: Status post left thoracentesis Technique: Portable upright AP chest Findings: Comparison: April 08, 2017 Bilateral pleural effusions persist, decreased on the left. No pneumothorax identified. Linear densities persist in the right midlung and are now noted in the lung base. Cardiomediastinal silhouette stable. No new abnormality identified. IMPRESSION: Decrease in left pleural effusion following thoracentesis; no pneumothorax No other change from 5 days prior
[2016-12-14 14:41] LABS: APPEARANCE, BODY FLUID TURBID; BD FL SOURCE ASCITIC FLUID
[2016-12-14 14:42] LABS: BODY FLUID NUCLEATED CELLS 102 /CUMM; BODY FLUID RBC 2610 /CUMM
[2016-12-14 14:44] LABS: BD FL VOLUME 24 mL
[2016-12-14 15:02] LABS: MONONUCLEAR WBC 85 %; POLYMORPHONUCLEAR WBC 5 %
[2016-12-14 16:02] VITALS: BP 112/87
[2016-12-14 20:33] VITALS: BP 117/78
[2016-12-15] VITALS: BP 130/78
[2016-12-15] MEDS: Morphine Sulfate 2mg/ml Inj IVP PRN ×3 (01:00→16:37)
[2016-12-15 04:00] VITALS: BP 124/83
[2016-12-15] MEDS: NovoLOG Insulin Flexpen SUBQ SCH ×4 (06:35→20:52)
[2016-12-15 07:05] LABS: BASOPHILS % (AUTO) 1.4 % (0.0-2.0); EOSINOPHILS % (AUTO) 1.4 % (0.0-3.0); LYMPHOCYTES % (AUTO) 13.7 % (20.0-45.0); MEAN CORPUSCULAR HEMOGLOBIN 27.8 PG (27.0-31.0); MEAN CORPUSCULAR HGB CONC 30.5 G/DL (32.0-36.0); MEAN CORPUSCULAR VOLUME 91 FL (80-99); MEAN PLATELET VOLUME 6.1 FL (6.5-10.1); MONOCYTES % (AUTO) 9.4 % (1.0-10.0); NEUTROPHILS % (AUTO) 74.1 % (45.0-75.0); PLATELET COUNT 389 K/UL (150-450); RED BLOOD COUNT 3.98 M/UL (4.20-5.40); RED CELL DISTRIBUTION WIDTH 18.4 % (11.6-14.8); WHITE BLOOD COUNT 7.4 K/UL (4.8-10.8)
[2016-12-15 07:13] LABS: ANION GAP 14 (5-15); CALCIUM 9.3 mg/dL (8.6-10.2); CARBON DIOXIDE 28 mEQ/L (20-30); CHLORIDE 96 mEQ/L (98-107); CREATININE 0.6 mg/dL (0.5-0.9); GLOMERULAR FILTRATION RATE > 60 mL/min (>60); HEMOLYSIS 1; MAGNESIUM 1.7 mg/dL (1.7-2.5); POTASSIUM 4.3 mEQ/L (3.4-4.9); SODIUM 138 mEQ/L (135-145)
[2016-12-15 08:21] VITALS: BP 117/82
[2016-12-15] MEDS: Spironolactone 25mg tab ORAL SCH ×2 (09:45→20:51)
[2016-12-15] MEDS: Docusate 100mg cap ORAL SCH ×3 (09:45→17:13)
[2016-12-15] MEDS: Heparin 5000 units/ml inj SUBQ SCH ×2 (09:50→20:53)
--- NOTE | 2016-12-15 10:29 | GI Progress Note ---
Assessment/Plan Problems: (1) Liver mass ICD Codes: R16.0 - Hepatomegaly, not elsewhere classified SNOMED: 187342065 (2) Metastatic disease ICD Codes: C80.1 - Malignant (primary) neoplasm, unspecified SNOMED: 004224226 (3) Abdominal pain ICD Codes: R10.9 - Unspecified abdominal pain SNOMED: 66110483 Qualifiers: Qualified Codes: R10.84 - Generalized abdominal pain (4) Ascites ICD Codes: R18.8 - Other ascites SNOMED: 812930999 (5) Elevated alkaline phosphatase level ICD Codes: R74.8 - Abnormal levels of other serum enzymes SNOMED: 773962032 Status: unchanged Status Narrative Discussed with Dr. Karimi. Assessment/Plan per patient >> she has Uterine CA stage IV and is being seen at [facility] APCT >> ascites, extensive metastasis in abdomen. no definitive SBO fu abdominal U/S >> Multiple hepatic masses, also described on recent CT.. Suspect disseminated neoplasm elevated 19-9 >> 153.5 s/p paracentesis and thoracentesis symptomatic treatment cont lasix fu AFP bowel regime ppi fu labs recommend oncology consult recommend Pain Mgmt consult Subjective Subjective nausea denies vomiting c/o of generalized abdominal pain 10/10 Objective Last 24 Hour Vital Signs Date Time Temp Pulse Resp B/P Pulse Ox O2 Delivery O2 Flow Rate FiO2 12/15/16 08:21 97.8 123 19 117/82 95 Room Air 12/15/16 04:00 98.1 118 17 124/83 94 Room Air 12/15/16 00:00 98.6 122 16 130/78 92 Room Air 12/14/16 20:33 98.2 113 16 117/78 96 Room Air 12/14/16 17:57 96.6 12/14/16 16:02 96.6 115 20 112/87 100 Room Air 12/14/16 12:02 97.5 112 20 117/80 94 Room Air Intake and Output 12/14/16 12/15/16 19:00 07:00 Intake Total 800 ml 820 ml Output Total 400 ml Balance 400 ml 820 ml Intake Oral 800 ml 420 ml IV Total 400 ml Output Urine Total 400 ml # Voids 2 3 Laboratory Tests Test 12/14/16 13:05 12/15/16 05:20 Body Fluid Source Ascitic fluid Body Fluid Volume 24 mL Body Fluid Appearance Turbid Body Fluid RBC 2610 /CUMM Body Fluid Total Nucleated Cells 102 /CUMM Body Fluid Polynuclear WBCs (%) 5 % Body Fluid Mononuclear WBCs (%) 85 % Body Fluid Mesothelial Cells (%) 10 % Body Fluid Glucose Pending Body Fluid Total Protein Pending Body Fluid Albumin Pending White Blood Count 7.4 K/UL (4.8-10.8) Red Blood Count 3.98 M/UL (4.20-5.40) L Hemoglobin 11.1 G/DL (12.0-16.0) L Hematocrit 36.3 % (37.0-47.0) L Mean Corpuscular Volume 91 FL (80-99) Mean Corpuscular Hemoglobin 27.8 PG (27.0-31.0) Mean Corpuscular Hemoglobin Concent 30.5 G/DL (32.0-36.0) L Red Cell Distribution Width 18.4 % (11.6-14.8) H Platelet Count 389 K/UL (150-450) Mean Platelet Volume 6.1 FL (6.5-10.1) L Neutrophils (%) (Auto) 74.1 % (45.0-75.0) Lymphocytes (%) (Auto) 13.7 % (20.0-45.0) L Monocytes (%) (Auto) 9.4 % (1.0-10.0) Eosinophils (%) (Auto) 1.4 % (0.0-3.0) Basophils (%) (Auto) 1.4 % (0.0-2.0) Sodium Level 138 mEQ/L (135-145) Potassium Level 4.3 mEQ/L (3.4-4.9) Chloride Level 96 mEQ/L (98-107) L Carbon Dioxide Level 28 mEQ/L (20-30) Anion Gap 14 (5-15) Blood Urea Nitrogen 16 mg/dL (7-23) Creatinine 0.6 mg/dL (0.5-0.9) Estimat Glomerular Filtration Rate > 60 mL/min (>60) Glucose Level 110 mg/dL (74-106) H Calcium Level 9.3 mg/dL (8.6-10.2) Magnesium Level 1.7 mg/dL (1.7-2.5) Height (Feet): 5 Height (Inches): 6.00 Weight (Pounds): 170 General Appearance: no apparent distress, alert Cardiovascular: normal rate Respiratory/Chest: normal breath sounds, no respiratory distress Abdominal Exam: normal bowel sounds, non tender, soft Objective Procedure: US ABD Complete Indication: Abdominal pain and nausea Technique: Conklin-scale and duplex images of the upper abdomen were obtained Comparison: 12/09/2016 CT abdomen pelvis Impression: Findings patchy abnormal hepatic echogenicity diffusely, likely reflecting chronic liver disease Multiple hepatic masses, also described on recent CT.. Suspect disseminated neoplasm Cholelithiasis. No definite gallbladder mass. Findings on recent CT in the gallbladder may just have reflect dense bile within the gallbladder lumen Mild intrahepatic biliary ductal dilatation, also described on recent CT Ascites Large left pleural effusion Incidental findings of bilateral renal cysts Note limited visualization of the distal abdominal aorta Love Witt N.P. Dec 15, 2016 10:29
[2016-12-15 11:19] VITALS: BP 116/78
[2016-12-15 14:00] LABS: COMMENT,BODY FLUID PATHOLOGIST COMMENT
[2016-12-15 16:01] VITALS: BP 108/78
[2016-12-15 16:17] LABS: PROTEIN, BODY FLUID 4.5 g/dL (.)
--- NOTE | 2016-12-15 17:57 | Pulmonology Progress Note ---
Assessment/Plan Problems: (1) Metastatic disease (2) Abdominal pain (3) Ascites (4) Elevated alkaline phosphatase level Assessment/Plan thoracentesis in am on methadone Pt will need placement social service evaluation Subjective Allergies: Coded Allergies: No Known Allergies (Unverified , 12/09/16) Objective Last 24 Hour Vital Signs Date Time Temp Pulse Resp B/P Pulse Ox O2 Delivery O2 Flow Rate FiO2 12/15/16 17:07 97.9 12/15/16 16:01 97.9 115 17 108/78 98 Room Air 12/15/16 11:19 97.0 113 19 116/78 94 Room Air 12/15/16 08:21 97.8 123 19 117/82 95 Room Air 12/15/16 04:00 98.1 118 17 124/83 94 Room Air 12/15/16 00:00 98.6 122 16 130/78 92 Room Air 12/14/16 20:33 98.2 113 16 117/78 96 Room Air Intake and Output 12/14/16 12/15/16 19:00 07:00 Intake Total 800 ml 820 ml Output Total 400 ml Balance 400 ml 820 ml Intake Oral 800 ml 420 ml IV Total 400 ml Output Urine Total 400 ml # Voids 2 3 Objective General Appearance: cachetic Respiratory/Chest: chest wall non-tender, lungs clear Cardiovascular: normal peripheral pulses, normal rate Abdomen: normal bowel sounds, soft, non tender Extremities: no clubbing Skin: no rash Microbiology Date/Time Source Procedure Growth Status 12/14/16 13:05 Ascities Fluid Gram Stain - Final Resulted 12/14/16 13:05 Ascities Fluid Body Fluid Culture Pending Resulted Laboratory Tests 12/15/16 05:20: White Blood Count 7.4, Red Blood Count 3.98L, Hemoglobin 11.1L, Hematocrit 36.3L , Mean Corpuscular Volume 91, Mean Corpuscular Hemoglobin 27.8, Mean Corpuscular Hemoglobin Concent 30.5L, Red Cell Distribution Width 18.4H, Platelet Count 389, Mean Platelet Volume 6.1L, Neutrophils (%) (Auto) 74.1, Lymphocytes (%) (Auto) 13.7L, Monocytes (%) (Auto) 9.4, Eosinophils (%) (Auto) 1.4, Basophils (%) (Auto) 1.4, Sodium Level 138, Potassium Level 4.3, Chloride Level 96L, Carbon Dioxide Level 28, Anion Gap 14, Blood Urea Nitrogen 16, Creatinine 0.6, Estimat Glomerular Filtration Rate > 60, Glucose Level 110H, Calcium Level 9.3, Magnesium Level 1.7 Current Medications Medications (Trade) Dose Ordered Sig/Fabian Route PRN Reason Start Time Stop Time Status Last Admin Dose Admin Acetaminophen (Tylenol) 650 mg Q4H PRN ORAL T>100.5 12/09/16 17:15 01/08/17 17:14 Al Hydroxide/Mg Hydroxide (Mylanta II) 30 ml Q6H PRN ORAL dyspepsia 12/09/16 18:00 01/08/17 17:59 Dextrose (Dextrose 50%) STAT PRN IV Hypoglycemia 12/09/16 17:15 01/08/17 17:14 Diphenhydramine HCl (Benadryl) 25 mg Q6H PRN ORAL Itching/Pruritis 12/09/16 18:00 01/08/17 17:59 Docusate Sodium (Colace) 100 mg THREE TIMES A DAY ORAL 12/10/16 18:00 01/09/17 17:59 12/15/16 17:13 Furosemide (Lasix) 40 mg DAILY IV 12/11/16 09:00 01/10/17 08:59 12/15/16 09:45 Heparin Sodium (Porcine) (Heparin 5000 units/ml) 5,000 units EVERY 12 HOURS SUBQ 12/09/16 21:00 01/08/17 20:59 12/15/16 09:50 Insulin Aspart (NovoLOG) BEFORE MEALS AND HS SUBQ 12/09/16 21:00 01/08/17 20:59 12/15/16 16:38 Methadone HCl (Methadone HCl) 10 mg EVERY 8 HOURS ORAL 12/12/16 22:00 12/19/16 21:59 12/15/16 14:03 Morphine Sulfate (Morphine Sulfate) 2 mg Q4H PRN IVP Severe Pain (Pain Scale 7-10) 12/09/16 17:15 12/16/16 17:14 12/15/16 16:37 Nitroglycerin 0.4 mg 0.4 mg Q5M X 3 DOSES PRN SL Prn Chest Pain 12/09/16 17:15 01/08/17 17:14 Ondansetron HCl (Zofran) 4 mg Q6H PRN IVP Nausea & Vomiting 12/09/16 18:00 01/08/17 17:59 12/10/16 18:35 Pantoprazole (Protonix) 40 mg DAILY ORAL 12/13/16 09:00 01/12/17 08:59 12/15/16 09:45 Polyethylene Glycol (Miralax) 17 gm BEDTIME ORAL 12/15/16 21:00 01/14/17 20:59 Polyethylene Glycol (Miralax) 17 gm HSPRN PRN ORAL Constipation 12/09/16 18:00 01/08/17 17:59 Sodium Chloride (Sodium Chloride 1000ml bag) 1,000 ml @ 50 mls/hr Q20H IV 12/09/16 18:00 01/08/17 17:59 12/15/16 14:04 Spironolactone (Aldactone) 25 mg EVERY 12 HOURS ORAL 12/10/16 21:00 01/09/17 20:59 12/15/16 09:45 Temazepam (Restoril) 15 mg HSPRN PRN ORAL Insomnia 12/09/16 21:00 12/16/16 20:59 12/10/16 00:50 SERENITY LAU Dec 15, 2016 17:57
[2016-12-15 20:00] VITALS: BP 118/72
[2016-12-15] MEDS: Miralax 17gm pkt ORAL SCH (20:53)
[2016-12-16] VITALS: BP 129/74
[2016-12-16] MEDS: Morphine Sulfate 2mg/ml Inj IVP PRN ×4 (00:27→17:13)
[2016-12-16 04:00] VITALS: BP 136/85
[2016-12-16] MEDS: NovoLOG Insulin Flexpen SUBQ SCH ×4 (06:30→21:29)
[2016-12-16 06:33] LABS: BASOPHILS % (AUTO) 2.9 % (0.0-2.0); EOSINOPHILS % (AUTO) 2.2 % (0.0-3.0); LYMPHOCYTES % (AUTO) 13.5 % (20.0-45.0); MEAN CORPUSCULAR HEMOGLOBIN 28.6 PG (27.0-31.0); MEAN CORPUSCULAR HGB CONC 31.3 G/DL (32.0-36.0); MEAN CORPUSCULAR VOLUME 92 FL (80-99); MEAN PLATELET VOLUME 6.9 FL (6.5-10.1); MONOCYTES % (AUTO) 11.5 % (1.0-10.0); NEUTROPHILS % (AUTO) 69.8 % (45.0-75.0); PLATELET COUNT 386 K/UL (150-450); RED BLOOD COUNT 3.85 M/UL (4.20-5.40); RED CELL DISTRIBUTION WIDTH 18.5 % (11.6-14.8); WHITE BLOOD COUNT 7.4 K/UL (4.8-10.8)
[2016-12-16 06:44] LABS: ANION GAP 13 (5-15); CARBON DIOXIDE 30 mEQ/L (20-30); CHLORIDE 89 mEQ/L (98-107); CREATININE 0.7 mg/dL (0.5-0.9); GLOMERULAR FILTRATION RATE > 60 mL/min (>60); HEMOLYSIS 2; POTASSIUM 3.8 mEQ/L (3.4-4.9); SODIUM 132 mEQ/L (135-145)
[2016-12-16 08:00] VITALS: BP 129/83
[2016-12-16] MEDS: Docusate 100mg cap ORAL SCH ×3 (08:49→17:12)
[2016-12-16] MEDS: Spironolactone 25mg tab ORAL SCH ×2 (08:49→21:12)
[2016-12-16] MEDS: Heparin 5000 units/ml inj SUBQ SCH ×2 (08:53→21:12)
--- NOTE | 2016-12-16 11:11 | GI Progress Note ---
Assessment/Plan Problems: (1) Liver mass ICD Codes: R16.0 - Hepatomegaly, not elsewhere classified SNOMED: 605058400 (2) Metastatic disease ICD Codes: C80.1 - Malignant (primary) neoplasm, unspecified SNOMED: 547291127 (3) Abdominal pain ICD Codes: R10.9 - Unspecified abdominal pain SNOMED: 26500262 Qualifiers: Qualified Codes: R10.84 - Generalized abdominal pain (4) Ascites ICD Codes: R18.8 - Other ascites SNOMED: 526339242 (5) Elevated alkaline phosphatase level ICD Codes: R74.8 - Abnormal levels of other serum enzymes SNOMED: 416954398 Status: unchanged Status Narrative Discussed with Dr. Karimi. Assessment/Plan per patient >> she has Uterine CA stage IV and is being seen at [facility] APCT >> ascites, extensive metastasis in abdomen. no definitive SBO fu abdominal U/S >> Multiple hepatic masses, also described on recent CT.. Suspect disseminated neoplasm elevated 19-9 >> 153.5 s/p paracentesis and thoracentesis fu AFP >> WNL symptomatic treatment cont lasix bowel regime ppi fu labs recommend oncology consult recommend Pain Mgmt consult Subjective Subjective nausea denies vomiting c/o of generalized abdominal pain 10/10 Objective Last 24 Hour Vital Signs Date Time Temp Pulse Resp B/P Pulse Ox O2 Delivery O2 Flow Rate FiO2 12/16/16 08:00 97.4 108 21 129/83 98 Nasal Cannula 2.0 12/16/16 04:00 97.9 104 18 136/85 98 Nasal Cannula 2.0 12/16/16 00:00 98.2 118 20 129/74 93 Nasal Cannula 2.0 12/15/16 20:00 98.1 112 18 118/72 99 Room Air 12/15/16 17:07 97.9 12/15/16 16:01 97.9 115 17 108/78 98 Room Air 12/15/16 11:19 97.0 113 19 116/78 94 Room Air Intake and Output 12/15/16 12/16/16 19:00 07:00 Intake Total 950 ml 1090 ml Balance 950 ml 1090 ml Intake Oral 600 ml 740 ml IV Total 350 ml 350 ml # Voids 3 3 Laboratory Tests Test 12/16/16 05:55 White Blood Count 7.4 K/UL (4.8-10.8) Red Blood Count 3.85 M/UL (4.20-5.40) L Hemoglobin 11.0 G/DL (12.0-16.0) L Hematocrit 35.2 % (37.0-47.0) L Mean Corpuscular Volume 92 FL (80-99) Mean Corpuscular Hemoglobin 28.6 PG (27.0-31.0) Mean Corpuscular Hemoglobin Concent 31.3 G/DL (32.0-36.0) L Red Cell Distribution Width 18.5 % (11.6-14.8) H Platelet Count 386 K/UL (150-450) Mean Platelet Volume 6.9 FL (6.5-10.1) Neutrophils (%) (Auto) 69.8 % (45.0-75.0) Lymphocytes (%) (Auto) 13.5 % (20.0-45.0) L Monocytes (%) (Auto) 11.5 % (1.0-10.0) H Eosinophils (%) (Auto) 2.2 % (0.0-3.0) Basophils (%) (Auto) 2.9 % (0.0-2.0) H Sodium Level 132 mEQ/L (135-145) L Potassium Level 3.8 mEQ/L (3.4-4.9) Chloride Level 89 mEQ/L (98-107) L Carbon Dioxide Level 30 mEQ/L (20-30) Anion Gap 13 (5-15) Blood Urea Nitrogen 16 mg/dL (7-23) Creatinine 0.7 mg/dL (0.5-0.9) Estimat Glomerular Filtration Rate > 60 mL/min (>60) Glucose Level 102 mg/dL (74-106) Calcium Level 9.0 mg/dL (8.6-10.2) Height (Feet): 5 Height (Inches): 6.00 Weight (Pounds): 170 General Appearance: no apparent distress, alert Cardiovascular: normal rate Respiratory/Chest: normal breath sounds, no accessory muscle use Abdominal Exam: normal bowel sounds, non tender, soft Objective Procedure: US ABD Complete Indication: Abdominal pain and nausea Technique: Coknlin-scale and duplex images of the upper abdomen were obtained Comparison: 12/09/2016 CT abdomen pelvis Impression: Findings patchy abnormal hepatic echogenicity diffusely, likely reflecting chronic liver disease Multiple hepatic masses, also described on recent CT.. Suspect disseminated neoplasm Cholelithiasis. No definite gallbladder mass. Findings on recent CT in the gallbladder may just have reflect dense bile within the gallbladder lumen Mild intrahepatic biliary ductal dilatation, also described on recent CT Ascites Large left pleural effusion Incidental findings of bilateral renal cysts Note limited visualization of the distal abdominal aorta Love Witt N.P. Dec 16, 2016 11:11
[2016-12-16 12:06] VITALS: BP 120/71
[2016-12-16 16:00] VITALS: BP 122/76
[2016-12-16 20:00] VITALS: BP 124/80
[2016-12-16] MEDS: Miralax 17gm pkt ORAL SCH (21:13)
--- NOTE | 2016-12-16 23:52 | Pulmonology Progress Note ---
Assessment/Plan Problems: (1) Metastatic disease (2) Abdominal pain (3) Ascites (4) Elevated alkaline phosphatase level Assessment/Plan on methadone Pt will need placement social service evaluation Subjective ROS Limited/Unobtainable: No Allergies: Coded Allergies: No Known Allergies (Unverified , 12/09/16) Objective Last 24 Hour Vital Signs Date Time Temp Pulse Resp B/P Pulse Ox O2 Delivery O2 Flow Rate FiO2 12/16/16 20:00 97.7 107 18 124/80 85 Room Air 12/16/16 16:00 98.2 103 20 122/76 94 Nasal Cannula 2.0 12/16/16 12:06 97.7 107 19 120/71 98 Nasal Cannula 2.0 12/16/16 08:00 97.4 108 21 129/83 98 Nasal Cannula 2.0 12/16/16 04:00 97.9 104 18 136/85 98 Nasal Cannula 2.0 12/16/16 00:00 98.2 118 20 129/74 93 Nasal Cannula 2.0 Intake and Output 12/15/16 12/16/16 19:00 07:00 Intake Total 950 ml 1090 ml Balance 950 ml 1090 ml Intake Oral 600 ml 740 ml IV Total 350 ml 350 ml # Voids 3 3 Objective General Appearance: cachetic Respiratory/Chest: chest wall non-tender, lungs clear Cardiovascular: normal peripheral pulses, normal rate Abdomen: normal bowel sounds, soft, non tender Extremities: no clubbing Skin: no rash Microbiology Date/Time Source Procedure Growth Status 12/14/16 13:05 Ascities Fluid Gram Stain - Final Resulted 12/14/16 13:05 Ascities Fluid Body Fluid Culture - Preliminary NO GROWTH AFTER 24 HOURS Resulted Laboratory Tests 12/16/16 05:55: White Blood Count 7.4, Red Blood Count 3.85L, Hemoglobin 11.0L, Hematocrit 35.2L , Mean Corpuscular Volume 92, Mean Corpuscular Hemoglobin 28.6, Mean Corpuscular Hemoglobin Concent 31.3L, Red Cell Distribution Width 18.5H, Platelet Count 386, Mean Platelet Volume 6.9, Neutrophils (%) (Auto) 69.8, Lymphocytes (%) (Auto) 13.5L, Monocytes (%) (Auto) 11.5H, Eosinophils (%) (Auto ) 2.2, Basophils (%) (Auto) 2.9H, Sodium Level 132L, Potassium Level 3.8, Chloride Level 89L, Carbon Dioxide Level 30, Anion Gap 13, Blood Urea Nitrogen 16, Creatinine 0.7, Estimat Glomerular Filtration Rate > 60, Glucose Level 102, Calcium Level 9.0 Current Medications Medications (Trade) Dose Ordered Sig/Fabian Route PRN Reason Start Time Stop Time Status Last Admin Dose Admin Acetaminophen (Tylenol) 650 mg Q4H PRN ORAL T>100.5 12/09/16 17:15 01/08/17 17:14 Al Hydroxide/Mg Hydroxide (Mylanta II) 30 ml Q6H PRN ORAL dyspepsia 12/09/16 18:00 01/08/17 17:59 Dextrose (Dextrose 50%) STAT PRN IV Hypoglycemia 12/09/16 17:15 01/08/17 17:14 Diphenhydramine HCl (Benadryl) 25 mg Q6H PRN ORAL Itching/Pruritis 12/09/16 18:00 01/08/17 17:59 Docusate Sodium (Colace) 100 mg THREE TIMES A DAY ORAL 12/10/16 18:00 01/09/17 17:59 12/16/16 17:12 Furosemide (Lasix) 40 mg DAILY IV 12/11/16 09:00 01/10/17 08:59 12/16/16 08:49 Heparin Sodium (Porcine) (Heparin 5000 units/ml) 5,000 units EVERY 12 HOURS SUBQ 12/09/16 21:00 01/08/17 20:59 12/16/16 21:12 Insulin Aspart (NovoLOG) BEFORE MEALS AND HS SUBQ 12/09/16 21:00 01/08/17 20:59 12/16/16 21:29 Methadone HCl (Methadone HCl) 10 mg EVERY 8 HOURS ORAL 12/16/16 22:00 12/23/16 21:59 12/16/16 21:12 Nitroglycerin 0.4 mg 0.4 mg Q5M X 3 DOSES PRN SL Prn Chest Pain 12/09/16 17:15 01/08/17 17:14 Ondansetron HCl (Zofran) 4 mg Q6H PRN IVP Nausea & Vomiting 12/09/16 18:00 01/08/17 17:59 12/10/16 18:35 Pantoprazole (Protonix) 40 mg DAILY ORAL 12/13/16 09:00 01/12/17 08:59 12/16/16 08:50 Polyethylene Glycol (Miralax) 17 gm BEDTIME ORAL 12/15/16 21:00 01/14/17 20:59 12/16/16 21:13 Polyethylene Glycol (Miralax) 17 gm HSPRN PRN ORAL Constipation 12/09/16 18:00 01/08/17 17:59 Sodium Chloride (Sodium Chloride 1000ml bag) 1,000 ml @ 50 mls/hr Q20H IV 12/09/16 18:00 01/08/17 17:59 12/15/16 14:04 Spironolactone (Aldactone) 25 mg EVERY 12 HOURS ORAL 12/10/16 21:00 01/09/17 20:59 12/16/16 21:12 SERENITY LAU Dec 16, 2016 23:52
[2016-12-17] VITALS: BP 100/60
[2016-12-17 04:00] VITALS: BP 114/63
[2016-12-17] MEDS: NovoLOG Insulin Flexpen SUBQ SCH ×4 (05:41→21:35)
--- NOTE | 2016-12-17 06:25 | Pulmonology Progress Note ---
Assessment/Plan Assessment/Plan ASSESSMENT abdominal pain metastatic disease uterine cancer stage 4 with metastasis to liver ascites s/p paracentesis and thoracentesis HTN DM [facility] [place] floor per patient has uterine CA stage IV and hand been seen at [facility] APCT revealed ascites, extensive metastasis in abdomen. no definitive SBO fu abdominal U/S demonstrated multiple hepatic masses, suspectrf disseminated neoplasm elevated 19-9 - 153.5; AFP - WNL s/p paracentesis (1800cc) and thoracentesis (500 cc) ascitic fluid + malignancy cells culture of ascitic fluid -preliminary negative CXR post tap- decrease in pleural effusion and no pneumothorax O2 HHN prn symptomatic treatment gentle hydration cont Lasix and Aldactone bowel regimen PPI Venous Duplex BLE negative DVT prophylaxis pain management with Methadone BS management with SS of insulin will need placement SS evaL for placement case discussed and evaluated by supervising physician Subjective Allergies: Coded Allergies: No Known Allergies (Unverified , 12/09/16) Subjective afebrile, no leukocytosis + generalized pain Objective Last 24 Hour Vital Signs Date Time Temp Pulse Resp B/P Pulse Ox O2 Delivery O2 Flow Rate FiO2 12/17/16 04:00 97.5 112 18 114/63 94 Nasal Cannula 2.0 12/17/16 00:00 97.7 120 18 100/60 95 Nasal Cannula 2.0 12/16/16 20:00 97.7 107 18 124/80 85 Room Air 12/16/16 16:00 98.2 103 20 122/76 94 Nasal Cannula 2.0 12/16/16 12:06 97.7 107 19 120/71 98 Nasal Cannula 2.0 12/16/16 08:00 97.4 108 21 129/83 98 Nasal Cannula 2.0 Intake and Output 12/16/16 12/17/16 19:00 07:00 Intake Total 180 ml 240 ml Balance 180 ml 240 ml Intake Oral 180 ml 240 ml # Voids 1 7 General Appearance: no acute distress HEENT: normocephalic, atraumatic, anicteric Respiratory/Chest: lungs clear, no respiratory distress, no accessory muscle use Cardiovascular: regular rhythm, tachycardia Abdomen: soft, non tender, non distended, distended Extremities: no edema Neurologic/Psychiatric: alert, oriented x 3, responsive Musculoskeletal: normal muscle bulk Microbiology Date/Time Source Procedure Growth Status 12/14/16 13:05 Ascities Fluid Gram Stain - Final Resulted 12/14/16 13:05 Ascities Fluid Body Fluid Culture - Preliminary NO GROWTH AFTER 24 HOURS Resulted Current Medications Medications (Trade) Dose Ordered Sig/Fabian Route PRN Reason Start Time Stop Time Status Last Admin Dose Admin Acetaminophen (Tylenol) 650 mg Q4H PRN ORAL T>100.5 12/09/16 17:15 01/08/17 17:14 12/17/16 00:50 Al Hydroxide/Mg Hydroxide (Mylanta II) 30 ml Q6H PRN ORAL dyspepsia 12/09/16 18:00 01/08/17 17:59 Dextrose (Dextrose 50%) STAT PRN IV Hypoglycemia 12/09/16 17:15 01/08/17 17:14 Diphenhydramine HCl (Benadryl) 25 mg Q6H PRN ORAL Itching/Pruritis 12/09/16 18:00 01/08/17 17:59 Docusate Sodium (Colace) 100 mg THREE TIMES A DAY ORAL 12/10/16 18:00 01/09/17 17:59 12/16/16 17:12 Furosemide (Lasix) 40 mg DAILY IV 12/11/16 09:00 01/10/17 08:59 12/16/16 08:49 Heparin Sodium (Porcine) (Heparin 5000 units/ml) 5,000 units EVERY 12 HOURS SUBQ 12/09/16 21:00 01/08/17 20:59 12/16/16 21:12 Insulin Aspart (NovoLOG) BEFORE MEALS AND HS SUBQ 12/09/16 21:00 01/08/17 20:59 12/17/16 05:41 Methadone HCl (Methadone HCl) 10 mg EVERY 8 HOURS ORAL 12/16/16 22:00 12/23/16 21:59 12/17/16 05:41 Nitroglycerin 0.4 mg 0.4 mg Q5M X 3 DOSES PRN SL Prn Chest Pain 12/09/16 17:15 01/08/17 17:14 Ondansetron HCl (Zofran) 4 mg Q6H PRN IVP Nausea & Vomiting 12/09/16 18:00 01/08/17 17:59 12/10/16 18:35 Pantoprazole (Protonix) 40 mg DAILY ORAL 12/13/16 09:00 01/12/17 08:59 12/16/16 08:50 Polyethylene Glycol (Miralax) 17 gm BEDTIME ORAL 12/15/16 21:00 01/14/17 20:59 12/16/16 21:13 Polyethylene Glycol (Miralax) 17 gm HSPRN PRN ORAL Constipation 12/09/16 18:00 01/08/17 17:59 Sodium Chloride (Sodium Chloride 1000ml bag) 1,000 ml @ 50 mls/hr Q20H IV 12/09/16 18:00 01/08/17 17:59 12/17/16 05:32 Spironolactone (Aldactone) 25 mg EVERY 12 HOURS ORAL 12/10/16 21:00 01/09/17 20:59 12/16/16 21:12 [facility] DivisionKarine Hanna NP Dec 17, 2016 06:25
[2016-12-17] MEDS: Morphine Sulfate 2mg/ml Inj IVP PRN ×3 (07:05→18:48)
[2016-12-17 07:16] LABS: BASOPHILS % (AUTO) 3.9 % (0.0-2.0); EOSINOPHILS % (AUTO) 2.3 % (0.0-3.0); LYMPHOCYTES % (AUTO) 15.1 % (20.0-45.0); MEAN CORPUSCULAR HEMOGLOBIN 27.2 PG (27.0-31.0); MEAN CORPUSCULAR HGB CONC 30.6 G/DL (32.0-36.0); MEAN CORPUSCULAR VOLUME 89 FL (80-99); MEAN PLATELET VOLUME 7.6 FL (6.5-10.1); MONOCYTES % (AUTO) 8.7 % (1.0-10.0); NEUTROPHILS % (AUTO) 70.1 % (45.0-75.0); PLATELET COUNT 378 K/UL (150-450); RED BLOOD COUNT 4.07 M/UL (4.20-5.40); RED CELL DISTRIBUTION WIDTH 18.5 % (11.6-14.8); WHITE BLOOD COUNT 6.5 K/UL (4.8-10.8)
[2016-12-17 07:41] LABS: ANION GAP 16 (5-15); CARBON DIOXIDE 27 mEQ/L (20-30); CHLORIDE 89 mEQ/L (98-107); CREATININE 0.6 mg/dL (0.5-0.9); GLOMERULAR FILTRATION RATE > 60 mL/min (>60); HEMOLYSIS 4; POTASSIUM 4.2 mEQ/L (3.4-4.9); SODIUM 132 mEQ/L (135-145)
[2016-12-17 08:00] VITALS: BP 131/84
[2016-12-17] MEDS: Spironolactone 25mg tab ORAL SCH ×2 (09:22→21:33)
[2016-12-17] MEDS: Docusate 100mg cap ORAL SCH ×3 (09:22→17:10)
[2016-12-17] MEDS: Heparin 5000 units/ml inj SUBQ SCH ×2 (09:35→21:34)
--- NOTE | 2016-12-17 10:36 | GI Progress Note ---
Assessment/Plan Problems: (1) Liver mass ICD Codes: R16.0 - Hepatomegaly, not elsewhere classified SNOMED: 031120481 (2) Metastatic disease ICD Codes: C80.1 - Malignant (primary) neoplasm, unspecified SNOMED: 291769767 (3) Abdominal pain ICD Codes: R10.9 - Unspecified abdominal pain SNOMED: 67430693 Qualifiers: Qualified Codes: R10.84 - Generalized abdominal pain (4) Ascites ICD Codes: R18.8 - Other ascites SNOMED: 342368066 (5) Elevated alkaline phosphatase level ICD Codes: R74.8 - Abnormal levels of other serum enzymes SNOMED: 909719923 Status: unchanged Status Narrative Discussed with Dr. Karimi. Assessment/Plan per patient >> she has Uterine CA stage IV and is being seen at [facility] APCT >> ascites, extensive metastasis in abdomen. no definitive SBO fu abdominal U/S >> Multiple hepatic masses, also described on recent CT.. Suspect disseminated neoplasm elevated 19-9 >> 153.5 s/p paracentesis and thoracentesis fu AFP >> WNL symptomatic treatment lasix bowel regime ppi PT eval fu labs Subjective Subjective denies vomiting c/o of generalized abdominal pain 10 Objective Last 24 Hour Vital Signs Date Time Temp Pulse Resp B/P Pulse Ox O2 Delivery O2 Flow Rate FiO2 12/17/16 08:00 98.1 110 19 131/84 97 12/17/16 04:00 97.5 112 18 114/63 94 Nasal Cannula 2.0 12/17/16 00:00 97.7 120 18 100/60 95 Nasal Cannula 2.0 12/16/16 20:00 97.7 107 18 124/80 85 Room Air 12/16/16 16:00 98.2 103 20 122/76 94 Nasal Cannula 2.0 12/16/16 12:06 97.7 107 19 120/71 98 Nasal Cannula 2.0 Intake and Output 12/16/16 12/17/16 19:00 07:00 Intake Total 180 ml 740 ml Balance 180 ml 740 ml Intake Oral 180 ml 740 ml # Voids 1 9 Laboratory Tests Test 12/17/16 06:30 White Blood Count 6.5 K/UL (4.8-10.8) Red Blood Count 4.07 M/UL (4.20-5.40) L Hemoglobin 11.1 G/DL (12.0-16.0) L Hematocrit 36.2 % (37.0-47.0) L Mean Corpuscular Volume 89 FL (80-99) Mean Corpuscular Hemoglobin 27.2 PG (27.0-31.0) Mean Corpuscular Hemoglobin Concent 30.6 G/DL (32.0-36.0) L Red Cell Distribution Width 18.5 % (11.6-14.8) H Platelet Count 378 K/UL (150-450) Mean Platelet Volume 7.6 FL (6.5-10.1) Neutrophils (%) (Auto) 70.1 % (45.0-75.0) Lymphocytes (%) (Auto) 15.1 % (20.0-45.0) L Monocytes (%) (Auto) 8.7 % (1.0-10.0) Eosinophils (%) (Auto) 2.3 % (0.0-3.0) Basophils (%) (Auto) 3.9 % (0.0-2.0) H Sodium Level 132 mEQ/L (135-145) L Potassium Level 4.2 mEQ/L (3.4-4.9) Chloride Level 89 mEQ/L (98-107) L Carbon Dioxide Level 27 mEQ/L (20-30) Anion Gap 16 (5-15) H Blood Urea Nitrogen 14 mg/dL (7-23) Creatinine 0.6 mg/dL (0.5-0.9) Estimat Glomerular Filtration Rate > 60 mL/min (>60) Glucose Level 98 mg/dL (74-106) Calcium Level 9.0 mg/dL (8.6-10.2) Height (Feet): 5 Height (Inches): 6.00 Weight (Pounds): 170 General Appearance: no apparent distress, alert Cardiovascular: normal rate Respiratory/Chest: normal breath sounds Abdominal Exam: normal bowel sounds, non tender, soft Objective Procedure: US ABD Complete Indication: Abdominal pain and nausea Technique: Conklin-scale and duplex images of the upper abdomen were obtained Comparison: 12/09/2016 CT abdomen pelvis Impression: Findings patchy abnormal hepatic echogenicity diffusely, likely reflecting chronic liver disease Multiple hepatic masses, also described on recent CT.. Suspect disseminated neoplasm Cholelithiasis. No definite gallbladder mass. Findings on recent CT in the gallbladder may just have reflect dense bile within the gallbladder lumen Mild intrahepatic biliary ductal dilatation, also described on recent CT Ascites Large left pleural effusion Incidental findings of bilateral renal cysts Note limited visualization of the distal abdominal aorta Love Witt N.P. Dec 17, 2016 10:36
[2016-12-17 12:02] VITALS: BP 126/84
--- NOTE | 2016-12-17 14:34 | Diagnostic Imaging Report ---
Clinical Indication: Abdominal pain and distention Technique: No oral contrast utilized, per emergency room physician request IV administration nonionic contrast. Venous phase spiral acquisition obtained through the abdomen and pelvis. Multiplanar reconstructions were generated. Total dose length product 53 mGycm. CTDIvol(s) 15 mGy Comparison: None Findings: The uterus is markedly abnormal. It contains multiple low attenuation areas. The largest of these conforms to the expected shape and distribution of the endometrial stripe, so may represent a thickened endometrium which measures up to 3 cm thick. There is a second and similar-appearing low-attenuation area which could represent a second endometrial cavity in the setting of a uterine duplication anomaly, but could represent a necrotic fibroid or other mass. There is a round 3.1 cm low-attenuation area in the left side of the fundus. In the anterior right fundus, there is a partially calcified intramural 2.5 cm mass. Other small areas of low attenuation are demonstrated, as well as areas of dense calcification. Surrounding the uterine are multiple confluent masses which are slightly hyperdense to muscle, demonstrates slight enhancement, and demonstrate peripheral calcification. As these masses are confluent and not discrete,. It is difficult to provide accurate measurements, the largest area appears to measure proximally age by 3 x 7.4 cm. This conglomerate masses is predominantly located on the left side of the uterus, immediately adjacent to the uterine fundus. A few are located to the right of the uterus. There is also a similar mass within the cul-de-sac which measures approximately 3 cm in diameter. There is retroperitoneal adenopathy, with multiple enlarged nodes demonstrating similar dense peripheral calcifications to the pelvic masses. These measure up to 3.6 cm long axis dimension. Similar-appearing masses and nodes are seen within the mesenteric root.. Multiple masses are seen in the anterior omental fat, with the conglomerate anterior to the liver and gallbladder measuring a 4.3 cm. There is a mass within the right upper rectus abdominis muscle belly, which is somewhat ill-defined but measures approximately 5 x 1.8 x 4 cm. Disc protrusions also through the muscle belly into the adjacent subcutaneous fat. Within segment 6 of the liver, there is a large somewhat ill-defined mass which is slightly hypoattenuating to liver which measures approximately 5.7 cm transverse by 4.2 cm AP by 5.6 cm craniocaudad. This demonstrates some peripheral calcification, although not as heavily calcified as the mass is seen elsewhere. There is mild biliary ductal dilatation in segment 7 which might be due to compression by this mass. Multiple cysts are seen in the liver, as well as multiple subcentimeter low-attenuation lesions which are too small to characterize. There is ill-defined tissue within the kaia hepatis with calcifications similar to those seen any other masses, probably representing kaia hepatis lymphadenopathy. A discrete 2.1 cm mass is seen within the lesser sac adjacent to the lesser curvature of the stomach. The gallbladder is markedly abnormal. It is distended, but appears to consist of soft tissue attenuation material. There is a small amount of fluid in the fundus surrounding a gallstone. The common bile duct is nondilated. There are large bilateral pleural effusions. These demonstrate a thick surrounding pleural reaction, PICC on the right, and could be loculated or even represent empyemas. The lung bases demonstrate compressive atelectatic changes. The heart is mildly enlarged. The pancreas is somewhat atrophic. The spleen, adrenals are unremarkable. Left kidney is unremarkable. The right kidney demonstrates an upper pole cyst. There is some focal thickening of the distal sigmoid colon. There is also suggestion of focal wall thickening of the proximal transverse colon, although t -- he colonic anatomy in this area is not well-defined, and this abnormality could represent another separate nodule or mass. No definite evidence of diverticulosis or diverticulitis. Dense stool is seen throughout the colon, suggestive of prior recent contrast ingestion. The appendix is normal. Some small bowel loops are mildly distended and fluid-filled. No definite abrupt transition point is demonstrated, however. No definite small bowel wall thickening.. The bones demonstrate degenerative spondylosis changes. There is grade 1 anterolisthesis of L4 on L5 with secondary degenerative change Impression: Evidence of extensive disseminated malignancy, as described, with multiple masses in the pelvis, retroperitoneal, mesenteric, and lesser sac lymphadenopathy, large liver mass, omental involvement, and a mass within the right rectus abdominis muscle. 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 Etiology of primary lesion uncertain, but distribution and extent of tumor within the pelvis suggests ovarian origin. There is also some focal wall thickening of the sigmoid colon which could indicate primary colonic malignancy Moderate ascites, likely malignant in origin Bilateral large pleural effusions. Presence of pleural thickening suggests loculation. Empyema is not excludable on either side Mildly dilated fluid-filled small bowel loops. No definite distal transition, favor ileus over small bowel obstruction Markedly abnormal gallbladder, with diffuse enlargement by soft tissue attenuation material. There is also questionable abnormality of the proximal transverse colon raising the possibility of colonic malignancy. Appearance raises concern for neoplastic involvement of the gallbladder, more likely primary than neoplastic. There is a gallstone in the fundus Incidental findings as noted, including degenerative spondylosis, grade 1 anterolisthesis of L4 on L5, cardiomegaly: Renal cyst The CT scanner at [facility] is accredited by the [employer] and the scans are performed using protocols designed to limit radiation exposure to as low as reasonably achievable to attain images of sufficient resolution adequate for diagnostic evaluation.
[2016-12-17 16:00] VITALS: BP 117/83
[2016-12-17 20:00] VITALS: BP 124/78
[2016-12-17] MEDS: Miralax 17gm pkt ORAL SCH (21:35)
[2016-12-18 00:18] VITALS: BP 120/75
[2016-12-18] MEDS: Morphine Sulfate 2mg/ml Inj IVP PRN ×5 (01:39→17:57)
[2016-12-18 04:00] VITALS: BP 114/68
[2016-12-18] MEDS: NovoLOG Insulin Flexpen SUBQ SCH ×4 (06:30→21:30)
[2016-12-18 07:03] LABS: BASOPHILS % (AUTO) 1.9 % (0.0-2.0); EOSINOPHILS % (AUTO) 1.5 % (0.0-3.0); MEAN CORPUSCULAR HEMOGLOBIN 27.2 PG (27.0-31.0); MEAN CORPUSCULAR HGB CONC 30.8 G/DL (32.0-36.0); MEAN CORPUSCULAR VOLUME 89 FL (80-99); MEAN PLATELET VOLUME 7.2 FL (6.5-10.1); MONOCYTES % (AUTO) 13.7 % (1.0-10.0); NEUTROPHILS % (AUTO) 72.9 % (45.0-75.0); PLATELET COUNT 408 K/UL (150-450); RED BLOOD COUNT 3.93 M/UL (4.20-5.40); RED CELL DISTRIBUTION WIDTH 18.2 % (11.6-14.8); WHITE BLOOD COUNT 6.2 K/UL (4.8-10.8)
[2016-12-18 07:32] LABS: ANION GAP 11 (5-15); CALCIUM 9.3 mg/dL (8.6-10.2); CARBON DIOXIDE 30 mEQ/L (20-30); CHLORIDE 93 mEQ/L (98-107); CREATININE 0.7 mg/dL (0.5-0.9); GLOMERULAR FILTRATION RATE > 60 mL/min (>60); HEMOLYSIS 2; POTASSIUM 4.9 mEQ/L (3.4-4.9); SODIUM 134 mEQ/L (135-145)
[2016-12-18 08:00] VITALS: BP 132/78
[2016-12-18] MEDS: Docusate 100mg cap ORAL SCH ×3 (08:43→17:46)
[2016-12-18] MEDS: Spironolactone 25mg tab ORAL SCH ×2 (08:43→21:27)
[2016-12-18] MEDS: Heparin 5000 units/ml inj SUBQ SCH ×2 (08:45→21:30)
--- NOTE | 2016-12-18 10:59 | Pulmonology Progress Note ---
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 APCT revealed ascites, extensive metastasis in abdomen. no definitive SBO fu abdominal U/S demonstrated multiple hepatic masses, suspectrf disseminated neoplasm elevated 19-9 - 153.5; AFP - WNL s/p paracentesis (1800cc) and thoracentesis (500 cc) ascitic fluid + malignancy cells culture of ascitic fluid -preliminary negative CXR post tap- decrease in pleural effusion and no pneumothorax O2 HHN prn symptomatic treatment gentle hydration cont Lasix and Aldactone bowel regimen PPI Venous Duplex BLE negative DVT prophylaxis pain management with Methadone BS management with SS of insulin will need placement SS evaL for placement case discussed and evaluated by supervising physician Subjective Allergies: Coded Allergies: No Known Allergies (Unverified , 12/09/16) Subjective afebrile, no leukocytosis + generalized pain, intermittently controlled Objective Last 24 Hour Vital Signs Date Time Temp Pulse Resp B/P Pulse Ox O2 Delivery O2 Flow Rate FiO2 12/18/16 09:20 97.1 12/18/16 08:00 97.1 88 19 132/78 96 Nasal Cannula 2.0 12/18/16 04:00 97.9 110 20 114/68 99 Nasal Cannula 12/18/16 00:18 97.2 107 18 120/75 100 Nasal Cannula 12/17/16 20:00 94.0 78 18 124/78 100 Room Air 12/17/16 16:00 97.7 116 19 117/83 92 Room Air 12/17/16 12:02 98.1 113 18 126/84 97 Intake and Output 12/17/16 12/18/16 19:00 07:00 Intake Total 490 ml 240 ml Balance 490 ml 240 ml Intake Oral 240 ml 240 ml IV Total 250 ml # Voids 5 4 Objective General Appearance: no acute distress chronically ill looking female HEENT: normocephalic, atraumatic, anicteric Respiratory/Chest: lungs clear, no respiratory distress, no accessory muscle use Cardiovascular: regular rhythm, tachycardia Abdomen: soft, non tender, non distended, distended Extremities: no edema Neurologic/Psychiatric: alert, oriented x 3, responsive Musculoskeletal: normal muscle bulk Laboratory Tests 12/18/16 06:50: White Blood Count 6.2, Red Blood Count 3.93L, Hemoglobin 10.7L, Hematocrit 34.8L , Mean Corpuscular Volume 89, Mean Corpuscular Hemoglobin 27.2, Mean Corpuscular Hemoglobin Concent 30.8L, Red Cell Distribution Width 18.2H, Platelet Count 408, Mean Platelet Volume 7.2, Neutrophils (%) (Auto) 72.9, Lymphocytes (%) (Auto) 10.0L, Monocytes (%) (Auto) 13.7H, Eosinophils (%) (Auto ) 1.5, Basophils (%) (Auto) 1.9, Sodium Level 134L, Potassium Level 4.9, Chloride Level 93L, Carbon Dioxide Level 30, Anion Gap 11, Blood Urea Nitrogen 14, Creatinine 0.7, Estimat Glomerular Filtration Rate > 60, Glucose Level 95, Calcium Level 9.3 Current Medications Medications (Trade) Dose Ordered Sig/Fabian Route PRN Reason Start Time Stop Time Status Last Admin Dose Admin Acetaminophen (Tylenol) 650 mg Q4H PRN ORAL T>100.5 12/09/16 17:15 01/08/17 17:14 12/17/16 00:50 Al Hydroxide/Mg Hydroxide (Mylanta II) 30 ml Q6H PRN ORAL dyspepsia 12/09/16 18:00 01/08/17 17:59 Dextrose (Dextrose 50%) STAT PRN IV Hypoglycemia 12/09/16 17:15 01/08/17 17:14 Diphenhydramine HCl (Benadryl) 25 mg Q6H PRN ORAL Itching/Pruritis 12/09/16 18:00 01/08/17 17:59 Docusate Sodium (Colace) 100 mg THREE TIMES A DAY ORAL 12/10/16 18:00 01/09/17 17:59 12/18/16 08:43 Furosemide (Lasix) 40 mg DAILY IV 12/11/16 09:00 01/10/17 08:59 12/18/16 08:43 Heparin Sodium (Porcine) (Heparin 5000 units/ml) 5,000 units EVERY 12 HOURS SUBQ 12/09/16 21:00 01/08/17 20:59 12/18/16 08:45 Insulin Aspart (NovoLOG) BEFORE MEALS AND HS SUBQ 12/09/16 21:00 01/08/17 20:59 12/17/16 21:35 Methadone HCl (Methadone HCl) 10 mg EVERY 8 HOURS ORAL 12/16/16 22:00 12/23/16 21:59 12/18/16 06:37 Morphine Sulfate (Morphine Sulfate) 2 mg Q3H PRN IVP Severe Pain (Pain Scale 7-10) 12/17/16 16:00 12/24/16 15:59 12/18/16 08:50 Nitroglycerin 0.4 mg 0.4 mg Q5M X 3 DOSES PRN SL Prn Chest Pain 12/09/16 17:15 01/08/17 17:14 Ondansetron HCl (Zofran) 4 mg Q6H PRN IVP Nausea & Vomiting 12/09/16 18:00 01/08/17 17:59 12/10/16 18:35 Pantoprazole (Protonix) 40 mg DAILY ORAL 12/13/16 09:00 01/12/17 08:59 12/18/16 08:43 Polyethylene Glycol (Miralax) 17 gm BEDTIME ORAL 12/15/16 21:00 01/14/17 20:59 12/17/16 21:35 Polyethylene Glycol (Miralax) 17 gm HSPRN PRN ORAL Constipation 12/09/16 18:00 01/08/17 17:59 12/18/16 08:45 Sodium Chloride (Sodium Chloride 1000ml bag) 1,000 ml @ 50 mls/hr Q20H IV 12/09/16 18:00 01/08/17 17:59 12/18/16 06:38 Spironolactone (Aldactone) 25 mg EVERY 12 HOURS ORAL 12/10/16 21:00 01/09/17 20:59 12/18/16 08:43 Stan (Arvind)Karine NP Dec 18, 2016 10:59
[2016-12-18 12:00] VITALS: BP 122/80
[2016-12-18 16:00] VITALS: BP 126/88
[2016-12-18 20:00] VITALS: BP 128/80
[2016-12-18] MEDS: Miralax 17gm pkt ORAL SCH (21:29)
[2016-12-19 00:31] VITALS: BP 122/79
[2016-12-19] MEDS: Morphine Sulfate 2mg/ml Inj IVP PRN ×4 (00:50→17:40)
[2016-12-19 04:00] VITALS: BP 134/77
[2016-12-19] MEDS: NovoLOG Insulin Flexpen SUBQ SCH ×4 (05:53→21:39)
[2016-12-19 08:00] VITALS: BP 128/90
[2016-12-19] MEDS: Spironolactone 25mg tab ORAL SCH ×2 (08:13→21:34)
[2016-12-19] MEDS: Docusate 100mg cap ORAL SCH ×3 (08:13→17:39)
[2016-12-19] MEDS: Heparin 5000 units/ml inj SUBQ SCH ×2 (08:16→21:40)
--- NOTE | 2016-12-19 09:07 | Pulmonology Progress Note ---
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 CT A/P revealed ascites, extensive metastasis in abdomen. no definitive SBO fu abdominal U/S demonstrated multiple hepatic masses, suspectrf disseminated neoplasm elevated 19-9 - 153.5; AFP - WNL s/p paracentesis (1800cc) and thoracentesis (500 cc) ascitic fluid + malignancy cells culture of ascitic fluid -preliminary negative CXR post tap- decrease in pleural effusion and no pneumothorax O2 HHN prn symptomatic treatment gentle hydration continue Lasix and Aldactone bowel regimen PPI Venous Duplex BLE negative DVT prophylaxis pain management with Methadone and Morphine prn BS management with SS of insulin need placement SS evaL for placement dc plan when placement found, case discussed and evaluated by supervising physician Subjective Allergies: Coded Allergies: No Known Allergies (Unverified , 12/09/16) Subjective afebrile, no leukocytosis + generalized pain, intermittently controlled with current regimen Objective Last 24 Hour Vital Signs Date Time Temp Pulse Resp B/P Pulse Ox O2 Delivery O2 Flow Rate FiO2 12/19/16 04:00 97.9 111 20 134/77 98 Nasal Cannula 12/19/16 00:31 98.1 97 20 122/79 97 Nasal Cannula 12/18/16 20:00 98.4 110 18 128/80 95 Nasal Cannula 2.0 12/18/16 16:00 96.3 112 19 126/88 95 Room Air 12/18/16 13:25 97.1 12/18/16 12:00 97.9 113 20 122/80 96 Nasal Cannula 2.0 Intake and Output 12/18/16 12/19/16 19:00 07:00 Intake Total 790 ml 590 ml Balance 790 ml 590 ml Intake Oral 490 ml 240 ml IV Total 300 ml 350 ml # Voids 2 5 Objective General Appearance: no acute distress chronically ill looking female HEENT: normocephalic, atraumatic, anicteric Respiratory/Chest: lungs clear, no respiratory distress, no accessory muscle use Cardiovascular: regular rhythm, tachycardia Abdomen: soft, non tender, non distended, distended Extremities: no edema Neurologic/Psychiatric: alert, oriented x 3, responsive Musculoskeletal: normal muscle bulk Current Medications Medications (Trade) Dose Ordered Sig/Fabian Route PRN Reason Start Time Stop Time Status Last Admin Dose Admin Acetaminophen (Tylenol) 650 mg Q4H PRN ORAL T>100.5 12/09/16 17:15 01/08/17 17:14 12/17/16 00:50 Al Hydroxide/Mg Hydroxide (Mylanta II) 30 ml Q6H PRN ORAL dyspepsia 12/09/16 18:00 01/08/17 17:59 Dextrose (Dextrose 50%) STAT PRN IV Hypoglycemia 12/09/16 17:15 01/08/17 17:14 Diphenhydramine HCl (Benadryl) 25 mg Q6H PRN ORAL Itching/Pruritis 12/09/16 18:00 01/08/17 17:59 Docusate Sodium (Colace) 100 mg THREE TIMES A DAY ORAL 12/10/16 18:00 01/09/17 17:59 12/19/16 08:13 Furosemide (Lasix) 40 mg DAILY IV 12/11/16 09:00 01/10/17 08:59 12/19/16 08:13 Heparin Sodium (Porcine) (Heparin 5000 units/ml) 5,000 units EVERY 12 HOURS SUBQ 12/09/16 21:00 01/08/17 20:59 12/19/16 08:16 Insulin Aspart (NovoLOG) BEFORE MEALS AND HS SUBQ 12/09/16 21:00 01/08/17 20:59 12/18/16 21:30 Methadone HCl (Methadone HCl) 10 mg EVERY 8 HOURS ORAL 12/16/16 22:00 12/23/16 21:59 12/19/16 07:05 Morphine Sulfate (Morphine Sulfate) 2 mg Q3H PRN IVP Severe Pain (Pain Scale 7-10) 12/17/16 16:00 12/24/16 15:59 12/19/16 00:50 Nitroglycerin 0.4 mg 0.4 mg Q5M X 3 DOSES PRN SL Prn Chest Pain 12/09/16 17:15 01/08/17 17:14 Ondansetron HCl (Zofran) 4 mg Q6H PRN IVP Nausea & Vomiting 12/09/16 18:00 01/08/17 17:59 12/10/16 18:35 Pantoprazole (Protonix) 40 mg DAILY ORAL 12/13/16 09:00 01/12/17 08:59 12/19/16 08:13 Polyethylene Glycol (Miralax) 17 gm BEDTIME ORAL 12/15/16 21:00 01/14/17 20:59 12/18/16 21:29 Polyethylene Glycol (Miralax) 17 gm HSPRN PRN ORAL Constipation 12/09/16 18:00 01/08/17 17:59 12/18/16 08:45 Sodium Chloride (Sodium Chloride 1000ml bag) 1,000 ml @ 50 mls/hr Q20H IV 12/09/16 18:00 01/08/17 17:59 12/18/16 21:31 Spironolactone (Aldactone) 25 mg EVERY 12 HOURS ORAL 12/10/16 21:00 01/09/17 20:59 12/19/16 08:13 [facility]Har[facility] Hospital[facility] Hanna NP Dec 19, 2016 09:07
[2016-12-19] MEDS ORDERED: NS Irrig 1000ml ONE (10:45)
[2016-12-19] MEDS ORDERED: D5NS 1000ml IV ONE (10:45)
[2016-12-19] MEDS ORDERED: D5 1/2NS 1000ml IV ONE (10:45)
[2016-12-19 12:00] VITALS: BP 111/77
[2016-12-19 16:16] VITALS: BP 119/73
[2016-12-19 20:43] VITALS: BP 115/78
[2016-12-19] MEDS: Miralax 17gm pkt ORAL SCH (21:34)
[2016-12-20] VITALS: BP 119/85
[2016-12-20] MEDS: Morphine Sulfate 2mg/ml Inj IVP PRN ×4 (00:07→20:39)
[2016-12-20 04:00] VITALS: BP 114/76
[2016-12-20] MEDS: NovoLOG Insulin Flexpen SUBQ SCH ×4 (05:55→20:44)
[2016-12-20 06:08] LABS: EOSINOPHILS % (AUTO) 3.4 % (0.0-3.0); LYMPHOCYTES % (AUTO) 13.6 % (20.0-45.0); MEAN CORPUSCULAR HEMOGLOBIN 27.2 PG (27.0-31.0); MEAN CORPUSCULAR HGB CONC 30.8 G/DL (32.0-36.0); MEAN CORPUSCULAR VOLUME 88 FL (80-99); MEAN PLATELET VOLUME 7.5 FL (6.5-10.1); MONOCYTES % (AUTO) 13.5 % (1.0-10.0); NEUTROPHILS % (AUTO) 67.6 % (45.0-75.0); PLATELET COUNT 408 K/UL (150-450); RED BLOOD COUNT 3.72 M/UL (4.20-5.40); RED CELL DISTRIBUTION WIDTH 18.1 % (11.6-14.8); WHITE BLOOD COUNT 5.4 K/UL (4.8-10.8)
[2016-12-20 07:33] LABS: ANION GAP 14 (5-15); CALCIUM 9.3 mg/dL (8.6-10.2); CARBON DIOXIDE 29 mEQ/L (20-30); CHLORIDE 89 mEQ/L (98-107); CREATININE 0.6 mg/dL (0.5-0.9); GLOMERULAR FILTRATION RATE > 60 mL/min (>60); HEMOLYSIS 3; SODIUM 132 mEQ/L (135-145)
[2016-12-20 08:08] VITALS: BP 146/87
[2016-12-20] MEDS: Spironolactone 25mg tab ORAL SCH ×2 (08:33→20:38)
[2016-12-20] MEDS: Heparin 5000 units/ml inj SUBQ SCH ×2 (08:35→20:44)
[2016-12-20] MEDS: Docusate 100mg cap ORAL SCH ×3 (08:45→17:19)
--- NOTE | 2016-12-20 10:26 | GI Progress Note ---
Assessment/Plan Problems: (1) Liver mass ICD Codes: R16.0 - Hepatomegaly, not elsewhere classified SNOMED: 826844523 (2) Metastatic disease ICD Codes: C80.1 - Malignant (primary) neoplasm, unspecified SNOMED: 934288473 (3) Abdominal pain ICD Codes: R10.9 - Unspecified abdominal pain SNOMED: 43333985 Qualifiers: Qualified Codes: R10.84 - Generalized abdominal pain (4) Ascites ICD Codes: R18.8 - Other ascites SNOMED: 464867623 (5) Elevated alkaline phosphatase level ICD Codes: R74.8 - Abnormal levels of other serum enzymes SNOMED: 703296573 Status: stable, unchanged Status Narrative Discussed with Dr. Karimi. Assessment/Plan per patient >> she has Uterine CA stage IV and is being seen at [facility] APCT >> ascites, extensive metastasis in abdomen. no definitive SBO fu abdominal U/S >> Multiple hepatic masses, also described on recent CT.. Suspect disseminated neoplasm elevated 19-9 >> 153.5 s/p paracentesis and thoracentesis fu AFP >> WNL ok DC per GI standpoint symptomatic treatment lasix bowel regime ppi PT eval fu labs Subjective Subjective denies vomiting c/o of generalized abdominal pain 10 Objective Last 24 Hour Vital Signs Date Time Temp Pulse Resp B/P Pulse Ox O2 Delivery O2 Flow Rate FiO2 12/20/16 08:08 95.7 108 17 146/87 99 Room Air 12/20/16 04:00 97.3 104 16 114/76 99 Room Air 12/20/16 00:00 97.9 96 16 119/85 100 Room Air 12/19/16 20:43 98.1 101 19 115/78 100 Room Air 12/19/16 16:16 97.9 103 20 119/73 98 Nasal Cannula 2.0 12/19/16 13:26 97.7 12/19/16 12:00 97.7 109 20 111/77 90 Room Air Intake and Output 12/19/16 12/20/16 19:00 07:00 Intake Total 1070 ml 940 ml Balance 1070 ml 940 ml Intake Oral 720 ml 740 ml IV Total 350 ml 200 ml # Voids 5 3 # Bowel Movements 2 Laboratory Tests Test 12/20/16 04:45 White Blood Count 5.4 K/UL (4.8-10.8) Red Blood Count 3.72 M/UL (4.20-5.40) L Hemoglobin 10.1 G/DL (12.0-16.0) L Hematocrit 32.9 % (37.0-47.0) L Mean Corpuscular Volume 88 FL (80-99) Mean Corpuscular Hemoglobin 27.2 PG (27.0-31.0) Mean Corpuscular Hemoglobin Concent 30.8 G/DL (32.0-36.0) L Red Cell Distribution Width 18.1 % (11.6-14.8) H Platelet Count 408 K/UL (150-450) Mean Platelet Volume 7.5 FL (6.5-10.1) Neutrophils (%) (Auto) 67.6 % (45.0-75.0) Lymphocytes (%) (Auto) 13.6 % (20.0-45.0) L Monocytes (%) (Auto) 13.5 % (1.0-10.0) H Eosinophils (%) (Auto) 3.4 % (0.0-3.0) H Basophils (%) (Auto) 2.0 % (0.0-2.0) Sodium Level 132 mEQ/L (135-145) L Potassium Level 4.0 mEQ/L (3.4-4.9) Chloride Level 89 mEQ/L (98-107) L Carbon Dioxide Level 29 mEQ/L (20-30) Anion Gap 14 (5-15) Blood Urea Nitrogen 11 mg/dL (7-23) Creatinine 0.6 mg/dL (0.5-0.9) Estimat Glomerular Filtration Rate > 60 mL/min (>60) Glucose Level 101 mg/dL (74-106) Calcium Level 9.3 mg/dL (8.6-10.2) Height (Feet): 5 Height (Inches): 6.00 Weight (Pounds): 170 General Appearance: no apparent distress, alert Cardiovascular: normal rate Respiratory/Chest: no respiratory distress Abdominal Exam: normal bowel sounds, non tender, soft Extremities: normal range of motion Objective Procedure: US ABD Complete Indication: Abdominal pain and nausea Technique: Conklin-scale and duplex images of the upper abdomen were obtained Comparison: 12/09/2016 CT abdomen pelvis Impression: Findings patchy abnormal hepatic echogenicity diffusely, likely reflecting chronic liver disease Multiple hepatic masses, also described on recent CT.. Suspect disseminated neoplasm Cholelithiasis. No definite gallbladder mass. Findings on recent CT in the gallbladder may just have reflect dense bile within the gallbladder lumen Mild intrahepatic biliary ductal dilatation, also described on recent CT Ascites Large left pleural effusion Incidental findings of bilateral renal cysts Note limited visualization of the distal abdominal aorta Love Witt N.P. Dec 20, 2016 10:26
[2016-12-20 12:14] VITALS: BP 108/65
[2016-12-20 15:33] VITALS: BP 123/76
[2016-12-20 20:00] VITALS: BP 116/75
[2016-12-20] MEDS: Miralax 17gm pkt ORAL SCH (20:36)
--- NOTE | 2016-12-20 23:03 | Pulmonology Progress Note ---
Assessment/Plan Problems: (1) Metastatic disease (2) Abdominal pain (3) Ascites (4) Elevated alkaline phosphatase level Assessment/Plan on methadone and morphine Pt will need placement social service evaluation Subjective ROS Limited/Unobtainable: No Allergies: Coded Allergies: No Known Allergies (Unverified , 12/09/16) Objective Last 24 Hour Vital Signs Date Time Temp Pulse Resp B/P Pulse Ox O2 Delivery O2 Flow Rate FiO2 12/20/16 20:00 97.5 114 20 116/75 92 Room Air 12/20/16 15:33 97.0 103 18 123/76 100 Nasal Cannula 2.0 12/20/16 12:14 96.9 104 17 108/65 98 Nasal Cannula 2.0 12/20/16 08:08 95.7 108 17 146/87 99 Room Air 12/20/16 04:00 97.3 104 16 114/76 99 Room Air 12/20/16 00:00 97.9 96 16 119/85 100 Room Air Intake and Output 12/19/16 12/20/16 19:00 07:00 Intake Total 1070 ml 940 ml Balance 1070 ml 940 ml Intake Oral 720 ml 740 ml IV Total 350 ml 200 ml # Voids 5 3 # Bowel Movements 2 Objective General Appearance: cachetic Respiratory/Chest: chest wall non-tender, lungs clear Cardiovascular: normal peripheral pulses, normal rate Abdomen: normal bowel sounds, soft, non tender Extremities: no clubbing Skin: no rash Laboratory Tests 12/20/16 04:45: White Blood Count 5.4, Red Blood Count 3.72L, Hemoglobin 10.1L, Hematocrit 32.9L , Mean Corpuscular Volume 88, Mean Corpuscular Hemoglobin 27.2, Mean Corpuscular Hemoglobin Concent 30.8L, Red Cell Distribution Width 18.1H, Platelet Count 408, Mean Platelet Volume 7.5, Neutrophils (%) (Auto) 67.6, Lymphocytes (%) (Auto) 13.6L, Monocytes (%) (Auto) 13.5H, Eosinophils (%) (Auto ) 3.4H, Basophils (%) (Auto) 2.0, Sodium Level 132L, Potassium Level 4.0, Chloride Level 89L, Carbon Dioxide Level 29, Anion Gap 14, Blood Urea Nitrogen 11, Creatinine 0.6, Estimat Glomerular Filtration Rate > 60, Glucose Level 101, Calcium Level 9.3 Current Medications Medications (Trade) Dose Ordered Sig/Fabian Route PRN Reason Start Time Stop Time Status Last Admin Dose Admin Acetaminophen (Tylenol) 650 mg Q4H PRN ORAL T>100.5 12/09/16 17:15 01/08/17 17:14 12/17/16 00:50 Al Hydroxide/Mg Hydroxide (Mylanta II) 30 ml Q6H PRN ORAL dyspepsia 12/09/16 18:00 01/08/17 17:59 Dextrose (Dextrose 50%) STAT PRN IV Hypoglycemia 12/09/16 17:15 01/08/17 17:14 Diphenhydramine HCl (Benadryl) 25 mg Q6H PRN ORAL Itching/Pruritis 12/09/16 18:00 01/08/17 17:59 Docusate Sodium (Colace) 100 mg THREE TIMES A DAY ORAL 12/10/16 18:00 01/09/17 17:59 12/20/16 17:19 Furosemide (Lasix) 40 mg DAILY IV 12/11/16 09:00 01/10/17 08:59 12/20/16 08:33 Heparin Sodium (Porcine) (Heparin 5000 units/ml) 5,000 units EVERY 12 HOURS SUBQ 12/09/16 21:00 01/08/17 20:59 12/20/16 20:44 Insulin Aspart (NovoLOG) BEFORE MEALS AND HS SUBQ 12/09/16 21:00 01/08/17 20:59 12/20/16 20:44 Methadone HCl (Methadone HCl) 10 mg EVERY 8 HOURS ORAL 12/16/16 22:00 12/23/16 21:59 12/20/16 21:12 Morphine Sulfate (Morphine Sulfate) 2 mg Q3H PRN IVP Severe Pain (Pain Scale 7-10) 12/17/16 16:00 12/24/16 15:59 12/20/16 20:39 Nitroglycerin 0.4 mg 0.4 mg Q5M X 3 DOSES PRN SL Prn Chest Pain 12/09/16 17:15 01/08/17 17:14 Ondansetron HCl (Zofran) 4 mg Q6H PRN IVP Nausea & Vomiting 12/09/16 18:00 01/08/17 17:59 12/10/16 18:35 Pantoprazole (Protonix) 40 mg DAILY ORAL 12/13/16 09:00 01/12/17 08:59 12/20/16 08:33 Polyethylene Glycol (Miralax) 17 gm BEDTIME ORAL 12/15/16 21:00 01/14/17 20:59 12/19/16 21:34 Polyethylene Glycol (Miralax) 17 gm HSPRN PRN ORAL Constipation 12/09/16 18:00 01/08/17 17:59 12/18/16 08:45 Sodium Chloride (Sodium Chloride 1000ml bag) 1,000 ml @ 50 mls/hr Q20H IV 12/09/16 18:00 01/08/17 17:59 12/20/16 00:00 Spironolactone (Aldactone) 25 mg EVERY 12 HOURS ORAL 12/10/16 21:00 01/09/17 20:59 12/20/16 20:38 SERENITY LAU Dec 20, 2016 23:03
[2016-12-21] VITALS: BP 119/79
[2016-12-21] MEDS: Morphine Sulfate 2mg/ml Inj IVP PRN (02:05)
[2016-12-21 04:00] VITALS: BP 110/62
[2016-12-21] MEDS: NovoLOG Insulin Flexpen SUBQ SCH ×3 (06:30→16:37)
[2016-12-21 07:29] LABS: BASOPHILS % (AUTO) 1.2 % (0.0-2.0); EOSINOPHILS % (AUTO) 2.7 % (0.0-3.0); MEAN CORPUSCULAR HEMOGLOBIN 27.3 PG (27.0-31.0); MEAN CORPUSCULAR HGB CONC 30.9 G/DL (32.0-36.0); MEAN CORPUSCULAR VOLUME 88 FL (80-99); MEAN PLATELET VOLUME 7.3 FL (6.5-10.1); NEUTROPHILS % (AUTO) 69.2 % (45.0-75.0); PLATELET COUNT 358 K/UL (150-450); RED BLOOD COUNT 3.64 M/UL (4.20-5.40); RED CELL DISTRIBUTION WIDTH 18.2 % (11.6-14.8)
[2016-12-21 07:34] LABS: ANION GAP 12 (5-15); CALCIUM 8.7 mg/dL (8.6-10.2); CARBON DIOXIDE 29 mEQ/L (20-30); CHLORIDE 92 mEQ/L (98-107); CREATININE 0.6 mg/dL (0.5-0.9); GLOMERULAR FILTRATION RATE > 60 mL/min (>60); HEMOLYSIS 1; POTASSIUM 4.1 mEQ/L (3.4-4.9); SODIUM 133 mEQ/L (135-145)
[2016-12-21 08:09] VITALS: BP 118/71
[2016-12-21] MEDS: Heparin 5000 units/ml inj SUBQ SCH (08:32)
[2016-12-21] MEDS: Docusate 100mg cap ORAL SCH ×3 (08:32→17:56)
[2016-12-21] MEDS: Spironolactone 25mg tab ORAL SCH (08:32)
[2016-12-21 12:15] VITALS: BP 122/75
--- NOTE | 2016-12-21 12:32 | GI Progress Note ---
Assessment/Plan Problems: (1) Liver mass ICD Codes: R16.0 - Hepatomegaly, not elsewhere classified SNOMED: 830191050 (2) Metastatic disease ICD Codes: C80.1 - Malignant (primary) neoplasm, unspecified SNOMED: 160628562 (3) Abdominal pain ICD Codes: R10.9 - Unspecified abdominal pain SNOMED: 15428633 Qualifiers: Qualified Codes: R10.84 - Generalized abdominal pain (4) Ascites ICD Codes: R18.8 - Other ascites SNOMED: 768562950 (5) Elevated alkaline phosphatase level ICD Codes: R74.8 - Abnormal levels of other serum enzymes SNOMED: 816363113 Status: stable Status Narrative Discussed with Dr. Karimi. Assessment/Plan per patient >> she has Uterine CA stage IV and is being seen at [facility] >> ascites, extensive metastasis in abdomen. no definitive SBO fu abdominal U/S >> Multiple hepatic masses, also described on recent CT.. Suspect disseminated neoplasm elevated 19-9 >> 153.5 s/p paracentesis and thoracentesis fu AFP >> WNL ok DC per GI standpoint symptomatic treatment lasix bowel regime ppi PT eval pain mgmt fu labs Subjective Subjective denies vomiting c/o of consistent abdominal pain 10 Objective Last 24 Hour Vital Signs Date Time Temp Pulse Resp B/P Pulse Ox O2 Delivery O2 Flow Rate FiO2 12/21/16 12:15 97.4 104 19 122/75 97 Nasal Cannula 2.0 12/21/16 08:09 98.2 103 21 118/71 98 Nasal Cannula 2.0 12/21/16 04:00 97.0 72 20 110/62 95 Nasal Cannula 2.0 12/21/16 02:35 96.6 12/21/16 00:00 96.6 109 18 119/79 97 Room Air 12/20/16 20:00 97.5 114 20 116/75 92 Room Air 12/20/16 15:33 97.0 103 18 123/76 100 Nasal Cannula 2.0 Intake and Output 12/20/16 12/21/16 19:00 07:00 Intake Total 1720 ml 970 ml Balance 1720 ml 970 ml Intake Oral 1320 ml 720 ml IV Total 400 ml 250 ml # Voids 3 5 # Bowel Movements 2 1 Laboratory Tests Test 12/21/16 07:05 White Blood Count 5.0 K/UL (4.8-10.8) Red Blood Count 3.64 M/UL (4.20-5.40) L Hemoglobin 9.9 G/DL (12.0-16.0) L Hematocrit 32.1 % (37.0-47.0) L Mean Corpuscular Volume 88 FL (80-99) Mean Corpuscular Hemoglobin 27.3 PG (27.0-31.0) Mean Corpuscular Hemoglobin Concent 30.9 G/DL (32.0-36.0) L Red Cell Distribution Width 18.2 % (11.6-14.8) H Platelet Count 358 K/UL (150-450) Mean Platelet Volume 7.3 FL (6.5-10.1) Neutrophils (%) (Auto) 69.2 % (45.0-75.0) Lymphocytes (%) (Auto) 12.0 % (20.0-45.0) L Monocytes (%) (Auto) 15.0 % (1.0-10.0) H Eosinophils (%) (Auto) 2.7 % (0.0-3.0) Basophils (%) (Auto) 1.2 % (0.0-2.0) Sodium Level 133 mEQ/L (135-145) L Potassium Level 4.1 mEQ/L (3.4-4.9) Chloride Level 92 mEQ/L (98-107) L Carbon Dioxide Level 29 mEQ/L (20-30) Anion Gap 12 (5-15) Blood Urea Nitrogen 9 mg/dL (7-23) Creatinine 0.6 mg/dL (0.5-0.9) Estimat Glomerular Filtration Rate > 60 mL/min (>60) Glucose Level 98 mg/dL (74-106) Calcium Level 8.7 mg/dL (8.6-10.2) Height (Feet): 5 Height (Inches): 6.00 Weight (Pounds): 170 General Appearance: no apparent distress, alert Cardiovascular: normal rate Respiratory/Chest: normal breath sounds, no respiratory distress Abdominal Exam: normal bowel sounds, non tender, soft Extremities: normal range of motion Objective Procedure: US ABD Complete Indication: Abdominal pain and nausea Technique: Conklin-scale and duplex images of the upper abdomen were obtained Comparison: 12/09/2016 CT abdomen pelvis Impression: Findings patchy abnormal hepatic echogenicity diffusely, likely reflecting chronic liver disease Multiple hepatic masses, also described on recent CT.. Suspect disseminated neoplasm Cholelithiasis. No definite gallbladder mass. Findings on recent CT in the gallbladder may just have reflect dense bile within the gallbladder lumen Mild intrahepatic biliary ductal dilatation, also described on recent CT Ascites Large left pleural effusion Incidental findings of bilateral renal cysts Note limited visualization of the distal abdominal aorta Love Witt N.P. Dec 21, 2016 12:32
[2016-12-21 16:00] VITALS: BP 111/70
[2016-12-21] MEDS ORDERED: METHADONE HCL10 MG ORAL (16:13)
[2016-12-21] MEDS ORDERED: DILAUDID2 MG ORAL (16:13)
[2016-12-21] MEDS ORDERED: BENADRYL25 MG ORAL (16:13)
[2016-12-21] MEDS ORDERED: HYDROmorphone 2mg tab ORAL PRN (16:15)
--- NOTE | 2016-12-21 16:17 | Pulmonology Progress Note ---
Assessment/Plan Problems: (1) Metastatic disease (2) Abdominal pain (3) Ascites (4) Elevated alkaline phosphatase level Assessment/Plan add dilaudid on methadone Pt will go to [facility] evaluation Subjective ROS Limited/Unobtainable: No Interval Events: pain still not controlled Allergies: Coded Allergies: No Known Allergies (Unverified , 12/09/16) Objective Last 24 Hour Vital Signs Date Time Temp Pulse Resp B/P Pulse Ox O2 Delivery O2 Flow Rate FiO2 12/21/16 12:15 97.4 104 19 122/75 97 Nasal Cannula 2.0 12/21/16 08:09 98.2 103 21 118/71 98 Nasal Cannula 2.0 12/21/16 04:00 97.0 72 20 110/62 95 Nasal Cannula 2.0 12/21/16 02:35 96.6 12/21/16 00:00 96.6 109 18 119/79 97 Room Air 12/20/16 20:00 97.5 114 20 116/75 92 Room Air Intake and Output 12/20/16 12/21/16 19:00 07:00 Intake Total 1720 ml 970 ml Balance 1720 ml 970 ml Intake Oral 1320 ml 720 ml IV Total 400 ml 250 ml # Voids 3 5 # Bowel Movements 2 1 Objective General Appearance: cachetic Respiratory/Chest: chest wall non-tender, lungs clear Cardiovascular: normal peripheral pulses, normal rate Abdomen: normal bowel sounds, soft, non tender Extremities: no clubbing Skin: no rash Laboratory Tests 12/21/16 07:05: White Blood Count 5.0, Red Blood Count 3.64L, Hemoglobin 9.9L, Hematocrit 32.1L , Mean Corpuscular Volume 88, Mean Corpuscular Hemoglobin 27.3, Mean Corpuscular Hemoglobin Concent 30.9L, Red Cell Distribution Width 18.2H, Platelet Count 358, Mean Platelet Volume 7.3, Neutrophils (%) (Auto) 69.2, Lymphocytes (%) (Auto) 12.0L, Monocytes (%) (Auto) 15.0H, Eosinophils (%) (Auto ) 2.7, Basophils (%) (Auto) 1.2, Sodium Level 133L, Potassium Level 4.1, Chloride Level 92L, Carbon Dioxide Level 29, Anion Gap 12, Blood Urea Nitrogen 9 , Creatinine 0.6, Estimat Glomerular Filtration Rate > 60, Glucose Level 98, Calcium Level 8.7 Current Medications Medications (Trade) Dose Ordered Sig/Fabian Route PRN Reason Start Time Stop Time Status Last Admin Dose Admin Acetaminophen (Tylenol) 650 mg Q4H PRN ORAL T>100.5 12/09/16 17:15 01/08/17 17:14 12/17/16 00:50 Al Hydroxide/Mg Hydroxide (Mylanta II) 30 ml Q6H PRN ORAL dyspepsia 12/09/16 18:00 01/08/17 17:59 Dextrose (Dextrose 50%) STAT PRN IV Hypoglycemia 12/09/16 17:15 01/08/17 17:14 Diphenhydramine HCl (Benadryl) 25 mg Q6H PRN ORAL Itching/Pruritis 12/09/16 18:00 01/08/17 17:59 12/21/16 08:31 Docusate Sodium (Colace) 100 mg THREE TIMES A DAY ORAL 12/10/16 18:00 01/09/17 17:59 12/21/16 14:13 Furosemide (Lasix) 40 mg DAILY IV 12/11/16 09:00 01/10/17 08:59 12/21/16 09:22 Heparin Sodium (Porcine) (Heparin 5000 units/ml) 5,000 units EVERY 12 HOURS SUBQ 12/09/16 21:00 01/08/17 20:59 12/21/16 08:32 Insulin Aspart (NovoLOG) BEFORE MEALS AND HS SUBQ 12/09/16 21:00 01/08/17 20:59 12/21/16 11:51 Methadone HCl (Methadone HCl) 10 mg EVERY 8 HOURS ORAL 12/16/16 22:00 12/23/16 21:59 12/21/16 14:13 Morphine Sulfate (Morphine Sulfate) 2 mg Q3H PRN IVP Severe Pain (Pain Scale 7-10) 12/17/16 16:00 12/24/16 15:59 12/21/16 02:05 Nitroglycerin 0.4 mg 0.4 mg Q5M X 3 DOSES PRN SL Prn Chest Pain 12/09/16 17:15 01/08/17 17:14 Ondansetron HCl (Zofran) 4 mg Q6H PRN IVP Nausea & Vomiting 12/09/16 18:00 01/08/17 17:59 12/10/16 18:35 Pantoprazole (Protonix) 40 mg DAILY ORAL 12/13/16 09:00 01/12/17 08:59 12/21/16 08:32 Polyethylene Glycol (Miralax) 17 gm BEDTIME ORAL 12/15/16 21:00 01/14/17 20:59 12/19/16 21:34 Polyethylene Glycol (Miralax) 17 gm HSPRN PRN ORAL Constipation 12/09/16 18:00 01/08/17 17:59 12/18/16 08:45 Sodium Chloride (Sodium Chloride 1000ml bag) 1,000 ml @ 50 mls/hr Q20H IV 12/09/16 18:00 01/08/17 17:59 12/21/16 01:03 Spironolactone (Aldactone) 25 mg EVERY 12 HOURS ORAL 12/10/16 21:00 01/09/17 20:59 12/21/16 08:32 SERENITY LAU Dec 21, 2016 16:17
--- NOTE | 2016-12-25 01:18 | Discharge Summary 2 SIG ---
DATE OF ADMISSION: 12/09/2016 DATE OF DISCHARGE: 12/21/2016 CASE HARDENER: Cliff Karimi M.D. BRIEF HOSPITAL COURSE: The patient is a 61-year-old female with history of diabetes and uterine cancer, who presented to emergency department complaining of abdominal pain. On evaluation, CAT scan done showed ascites with extensive metastases in the abdomen. No definitive small bowel obstruction. She had elevated alkaline phosphatase and unremarkable lipase. Dr. Karimi was consulted and was started on Aldactone and Lasix. Tumor markers were checked. Abdominal ultrasound showed abnormal patchy hepatic echogenicity, multiple hepatic mass with cholelithiasis, ascites, large left pleural effusion, and bilateral renal cysts. She was recommended paracentesis and thoracentesis; however, unable to get consent right away, as patient was undecided and refused initially. Finally on 12/10/2016, she underwent paracentesis yielding 1800 mL of fluid and left thoracentesis had 500 mL of pleural fluid. Chest x-ray post thoracentesis was negative for pneumothorax. Ascitic fluids were sent for pathology with findings of adenocarcinoma. AFP was within normal limits. CA-19-9 was 153. She underwent physical and occupational therapy and was eventually discharged to [facility]. FINAL DIAGNOSES: 1. 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 2. Ascites. 3. Status post paracentesis and thoracentesis. 4. Hypertension. 5. Diabetes mellitus. Malka Schulte M.D. I have been assigned to dictate discharge summary on this account and I was not involved in the patient's management. Kyleigh Valera N.P. DR: David JOB#: [id number] CC: [email or web address]
== END 2016-12-21 19:20 | disposition short-term general hospital (02) | DRG 436 ==
LOC: EDBD 13:18 → EMR 13:53 → 3E 16:38 → EDBD 16:38 → EDBEDREQ 17:14 → 3E 22:25
PROC: 0W9G3ZZ Drainage of Peritoneal Cavity, Percutaneous Approach (ICD-10-PCS; principal; 2016-12-10)
PROC: 0W9B3ZZ Drainage of Left Pleural Cavity, Percutaneous Approach (ICD-10-PCS; 2016-12-14)
DX: C78.7 Secondary malignant neoplasm of liver and intrahepatic bile duct (principal); R18.0 Malignant ascites; J90 Pleural effusion, not elsewhere classified; C79.89 Secondary malignant neoplasm of other specified sites; C55 Malignant neoplasm of uterus, part unspecified; K80.20 Calculus of gallbladder without cholecystitis without obstruction; R74.8 Abnormal levels of other serum enzymes; I10 Essential (primary) hypertension; E11.9 Type 2 diabetes mellitus without complications; Z85.42 Personal history of malignant neoplasm of other parts of uterus; R11.0 Nausea
CPT/HCPCS: 36415; 71010; 74177; 76700; 76942; 80048; 80053; 81003; 82105; 82140; 82150; 82378; 82962; 83036; 83690; 83735; 84100; 84443; 84484; 85025; 85610; 85730; 86301; 87070; 87205; 88104; 89051; 93970; J1815; J2405